=== PATIENT | male | born 1975 | race Caucasian/White ===

== ENCOUNTER 2016-12-14 11:24 | Inpatient (IN) | payer SELFPAY ==
[~2016-12-14] VITALS: Ht 180.3 cm; Wt 83.0 kg
--- NOTE | 2016-12-14 12:54 | PHYS DOC ---
Adult General Chief Complaint Chief Complaint: INSECT BITE HPI HPI Patient is a 41 year old male presents to the emergency department after being seen at urgent care today patient states that he was bit by something on Thursday and as of today he has increased swelling pain and discomfort to the right index finger. Patient is unable to have full range of motion of the finger. Patient has redness warmth tenderness that appears to have a hole in the middle of the redness. Patient is right-hand dominant. Patient's tetanus immunization is up-to-date. Patient denies any fever, chills or any nausea or vomiting. Review of Systems Review of Systems . Redness warmth tenderness and swelling to the right index finger. Constitutional: Denies fever or chills [] Eyes: Denies change in visual acuity, redness, or eye pain [] HENT: Denies nasal congestion or sore throat [] Respiratory: Denies cough or shortness of breath [] Cardiovascular: No additional information not addressed in HPI [] GI: Denies abdominal pain, nausea, vomiting, bloody stools or diarrhea [] : Denies dysuria or hematuria [] Musculoskeletal: Denies back pain or joint pain [] Integument: Denies rash or skin lesions [] Neurologic: Denies headache, focal weakness or sensory changes [] Endocrine: Denies polyuria or polydipsia [] Current Medications Current Medications Allergies Allergies Allergies Coded Allergies Type Severity Reaction Last Updated Verified No Known Drug Allergies 12/14/16 No Physical Exam Physical Exam Constitutional: Well developed, well nourished, no acute distress, non-toxic appearance. [] HENT: Normocephalic, atraumatic, bilateral external ears normal, oropharynx moist, no oral exudates, nose normal. [] Eyes: PERRLA, EOMI, conjunctiva normal, no discharge. [] Neck: Normal range of motion, no tenderness, supple, no stridor. [] Cardiovascular:Heart rate regular rhythm, no murmur [] Lungs & Thorax: Bilateral breath sounds clear to auscultation [] Abdomen: Bowel sounds normal, soft, no tenderness, no masses, no pulsatile masses. [] Skin: Warm, dry, no erythema, no rash. Patient with redness warmth tenderness to the right index finger with swelling noted. No drainage or discharge noted however there does appear to be a open wound noted in the center of the redness. Extremities: No tenderness, no cyanosis, no clubbing, ROM intact, no edema. [] Neurologic: Alert and oriented X 3, normal motor function, normal sensory function, no focal deficits noted. [] Psychologic: Affect normal, judgement normal, mood normal. [] Current Patient Data Vital Signs Vital Signs Date Time Temp Pulse Resp B/P (MAP) Pulse Ox O2 Delivery O2 Flow Rate FiO2 12/14/16 12:50 97.8 70 18 134/88 (103) 98 Room Air 97.8 EKG EKG [] Radiology/Procedures Radiology/Procedures [] Course & Med Decision Making Course & Med Decision Making Pertinent Labs and Imaging studies reviewed. (See chart for details) Spoke with Dr. Rivera in regards to patient being admitted into the hospital for IV antibiotics due to the appearance of the cellulitis. Patient does have labs pending CBC, CMP. Patient has had x-ray completed however the report is not back yet. She agrees with the admission. Patient was placed on vancomycin. Patient is in agreement's with admission as well. [] Dragon Disclaimer Dragon Disclaimer This electronic medical record was generated, in whole or in part, using a voice recognition dictation system. Departure Departure Impression: Primary Impression: Cellulitis of finger of right hand Disposition: ADMITTED INPATIENT Admitting Physician: Suma Rivera Referrals: UNKNOWN PCP NAME (PCP) KELLY QUEEN APRN Dec 14, 2016 12:54
[2016-12-14] MEDS ORDERED: HYDROcodone/APAP 10/325 1 TAB TABLET PO ONE (13:00)
[2016-12-14] MEDS ORDERED: VANCOMYCIN 1GM IVPB FOR OMNI 250 ML IV ONE (13:00)
[2016-12-14] MEDS ORDERED: ONDANSETRON PF 4 MG/2 ML VIAL. IV PRN ×2 (13:15→15:15)
--- NOTE | 2016-12-14 13:17 | RAD ---
Three-view study of the second digit of the right hand Indications: Insect bite of index finger. Open wound of the proximal aspect of the finger. Findings: No acute fracture or dislocation or osteolytic process is seen. Diffuse soft tissue swelling of the second digit is evident. No radiopaque foreign body of the second digit is seen. There is a 3 mm metallic foreign body of the palmar soft tissues of the right thumb. This is seen at the level of the distal phalanx. Another punctate metallic foreign body is seen within the dorsal aspect of the right thumb at the level of the first metatarsal phalangeal joint. IMPRESSION: No acute osseous abnormality. Metallic foreign bodies of the right thumb.
[2016-12-14 13:33] LABS: BASO # 0.1 x10^3/uL (0.0-0.2); BASO % 1 % (0-3); EOS % 1 % (0-3); HEMATOCRIT 42.6 % (39.0-53.0); LYMPH # 2.2 x10^3/uL (1.0-4.8); LYMPH % 16 % (24-48); MEAN CORPUSCULAR HEMOGLOBIN 28 pg (25-35); MEAN CORPUSCULAR HGB CONC 33 g/dL (31-37); MEAN CORPUSCULAR VOLUME 86 fL (79-100); MONO % 5 % (0-9); NEUT % 77 % (31-73); PLATELET COUNT 316 x10^3/uL (140-400); RED BLOOD COUNT 4.96 x10^6/uL (4.30-5.70); WHITE BLOOD COUNT 13.6 x10^3/uL (4.0-11.0)
[2016-12-14 13:39] LABS: CALCIUM 8.7 mg/dL (8.5-10.1); CREATININE 1.3 mg/dL (0.7-1.3); GFR 61.1; POTASSIUM 3.9 mmol/L (3.5-5.1)
[2016-12-14 13:45] LABS: ALBUMIN 3.5 g/dL (3.4-5.0); ALBUMIN/GLOBULIN RATIO 0.7 (1.0-1.7); TOTAL BILIRUBIN 0.4 mg/dL (0.2-1.0); TOTAL PROTEIN 8.2 g/dL (6.4-8.2)
[2016-12-14] MEDS ORDERED: VANCOMYCIN 2 GM in IV NORMAL SALINE 500ML BAG 500 ML IV ONE (14:00)
[2016-12-14] MEDS: VANCOMYCIN PER PHARMACY MC PRN (14:50)
[2016-12-14 15:09] VITALS: BP 119/76
[2016-12-14] MEDS ORDERED: ACETAMINOPHEN 325 MG TABLET. PO PRN (15:15)
--- NOTE | 2016-12-14 15:26 | PDOC1 ---
History and Physical Date of Admission Date of Admission DATE: 12/14/16 TIME: 15:20 Identification/Chief Complaint Chief Complaint Rt forefinger swelling and pain Problems: Source Source: Caregiver, Chart review, Patient History of Present Illness History of Present Illness 41 y.o male with no past medical, was sharpening his knife thursday while working on his garage/car, maybe admitted now that some shrapnel went to his skin forefinger and might have manipulated even more, Today, thursday, no fevers, but Rt forefinger, swollen, red with some clear to slightly milkish dc on open wound of said finger. Admitted after IV vanc, LAbs WBC 13, afebriile,. Xrays shows some foreign metallic objects on subject finger. 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 Hence he is on ASA 81,. They are curious about the results Past Medical History Cardiovascular: No pertinent hx Pulmonary: No pertinent hx GI: No pertinent hx Heme/Onc: No pertinent hx Hepatobiliary: No pertinent hx Psych: No pertinent hx Rheumatologic: No pertinent hx Infectious disease: No pertinent hx ENT: No pertinent hx Renal/: No pertinent hx Endocrine: No pertinent hx Dermatology: No pertinent hx Past Surgical History Past Surgical History: No pertinent history Family History Family History: Other (protein C and S deficiency) Social History Smoke: No ALCOHOL: none Drugs: None Current Problem List Problem List Problems Medical Problems: (1) Cellulitis of finger of right hand Status: Acute Problems: Current Medications Current Medications Current Medications Vancomycin HCl 250 ml @ 250 mls/hr 1X ONCE IV ; Start 12/14/16 at 13:00; Stop 12/14/16 at 13:59; Status Cancel Acetaminophen/ Hydrocodone Bitart (Lortab 10/325) 1 tab 1X ONCE PO Last administered on 12/14/16t 13:38; Start 12/14/16 at 13:00; Stop 12/14/16 at 13 :01; Status DC Ondansetron HCl (Zofran) 4 mg PRN Q8HRS PRN IV NAUSEA/VOMITING; Start at 13:15; Stop 12/14/16 at 15:02; Status DC Vancomycin HCl (Vanco Per Pharmacy) 1 each PRN DAILY PRN MC SEE COMMENTS Last administered on 12/14/16t 14:50; Start 12/14/16 at 13:15 Acetaminophen/ Hydrocodone Bitart (Lortab 5/325) 2 tab PRN Q6HRS PRN PO pain; Start 12/14/16 at 13:15 Vancomycin HCl 2 gm/Sodium Chloride 500 ml @ 250 mls/hr 1X ONCE IV Last administered on 12/14/16t 13:38; Start 12/14/16 at 14:00; Stop 12/14/16 at 15 :59 Vancomycin HCl 1.25 gm/Sodium Chloride 250 ml @ 167 mls/hr Q12H IV ; Start at 02:00 Vancomycin HCl 1 each 1X ONCE MC ; Start 12/16/16 at 01:30; Stop 12/16/16 at 01:31 Ondansetron HCl (Zofran) 4 mg PRN Q6HRS PRN IV NAUSEA/VOMITING; Start at 15:15; Stop 12/15/16 at 15:14 Acetaminophen (Tylenol) 650 mg PRN Q6HRS PRN PO pain; Start 12/14/16 at 15:15 Morphine Sulfate 2 mg PRN Q2HR PRN IV PAIN; Start 12/14/16 at 15:15 Allergies Allergies: Coded Allergies: No Known Drug Allergies (Unverified , 12/14/16) ROS General: No: Chills, Night Sweats, Fatigue, Malaise, Appetite, Other PSYCHOLOGICAL ROS: No: Anxiety, Behavioral Disorder, Concentration difficultie , Decreased libido, Depression, Disorientation, Hallucinations, Hostility, Irritablity, Memory difficulties, Mood Swings, Obsessive thoughts, Physical abuse, Sexual abuse, Sleep disturbances, Suicidal ideation, Other Eyes: No Blurry vision, No Decreased vision, No Double vision, No Dry eyes, No Excessive tearing, No Eye Pain, No Itchy Eyes, No Loss of vision, No Photophobia , No Scotomata, No Uses contacts, No Uses glasses, No Other HEENT: No: Heacaches, Visual Changes, Hearing change, Nasal congestion, Nasal discharge, Oral lesions, Sinus pain, Sore Throat, Epistaxis, Sneezing, Snoring, Tinnitus, Vertigo, Vocal changes, Other ALLERGY AND IMMUNOLOGY: No: Hives, Insect Bite Sensitivity, Itchy/Watery Eyes, Nasal Congestion, Post Nasal Drip, Seasonal Allergies, Other Hematological and Lymphatic: No: Bleeding Problems, Blood Clots, Blood Transfusions, Brusing, Night Sweats, Pallor, Swollen Lymph Nodes, Other ENDOCRINE: No: Breast Changes, Galactorrhea, Hair Pattern Changes, Hot Flashes , Malaise/lethargy, Mood Swings, Palpitations, Polydipsia/polyuria, Skin Changes , Temperature Intolerance, Unexpected Weight Changes, Other Breast: No New/Changing Breast Lumps, No Nipple changes, No Nipple discharge, No Other Respiratory: No: Cough, Hemoptysis, Orthopnea, Pleuritic Pain, Shortness of breath, SOB with excertion, Sputum Changes, Stridor, Tachypnea, Wheezing, Other Cardiovascular: No Chest Pain, No Palpitations, No Orthopnea, No Paroxysmal Noc. Dyspnea, No Edema, No Lt Headedness, No Other Gastrointestinal: No Nausea, No Vomiting, No Abdominal Pain, No Diarrhea, No Constipation, No Melena, No Hematochezia, No Other Genitourinary: No Dysuria, No Frequency, No Incontinence, No Hematuria, No Retention, No Discharge, No Urgency, No Pain, No Flank Pain, No Other, No , No , No , No , No , No , No Musculoskeletal: No Gait Disturbance, No Joint Pain, No Joint Stiffness, No Joint Swelling, No Muscle Pain, No Muscular Weakness, No Pain In:, No Swelling In:, No Other Neurological: No Behavorial Changes, No Bowel/Bladder ControlChng, No Confusion , No Dizziness, No Gait Disturbance, No Headaches, No Impaired Coord/balance, No Memory Loss, No Numbness/Tingling, No Seizures, No Speech Problems, No Tremors, No Visual Changes, No Weakness, No Other Skin: Yes Other (as per HPI) Physical Exam General: Alert, Oriented X3, Cooperative, No acute distress HEENT: Atraumatic, PERRLA, EOMI Lungs: Clear to auscultation, Normal air movement Heart: S1S2, RRR, no thrills, no rubs, no gallops, murmurs Cardiovascular: S1, S2 Abdomen: Normal bowel sounds, Soft, No tenderness, No hepatosplenomegaly, No masses Male Genitals Exam: normal genitalia, normal prostate Rectal Exam: not examined PELVIC: Nml ext genitalia Extremities: Other (T forefingerm, swollen, red, open lesion with some clear to yellowish/milky dc, limited flexion bec of swelling) Neuro: Normal gait, Normal speech, Strength at 5/5 X4 ext, Normal tone, Sensation intact, Cranial nerves 3-12 NL, Reflexes 2+ Psych/Mental Status: Mental status NL, Mood NL Vitals Vitals Vital Signs Date Time Temp Pulse Resp B/P (MAP) Pulse Ox O2 Delivery O2 Flow Rate FiO2 12/14/16 12:50 97.8 70 18 134/88 (103) 98 Room Air 97.8 Labs Labs Laboratory Tests Test 12/14/16 13:25 White Blood Count 13.6 x10^3/uL (4.0-11.0) Red Blood Count 4.96 x10^6/uL (4.30-5.70) Hemoglobin 14.0 g/dL (13.0-17.5) Hematocrit 42.6 % (39.0-53.0) Mean Corpuscular Volume 86 fL (79-100) Mean Corpuscular Hemoglobin 28 pg (25-35) Mean Corpuscular Hemoglobin Concent 33 g/dL (31-37) Red Cell Distribution Width 13.0 % (11.5-14.5) Platelet Count 316 x10^3/uL (140-400) Neutrophils (%) (Auto) 77 % (31-73) Lymphocytes (%) (Auto) 16 % (24-48) Monocytes (%) (Auto) 5 % (0-9) Eosinophils (%) (Auto) 1 % (0-3) Basophils (%) (Auto) 1 % (0-3) Neutrophils # (Auto) 10.5 x10^3uL (1.8-7.7) Lymphocytes # (Auto) 2.2 x10^3/uL (1.0-4.8) Monocytes # (Auto) 0.7 x10^3/uL (0.0-1.1) Eosinophils # (Auto) 0.1 x10^3/uL (0.0-0.7) Basophils # (Auto) 0.1 x10^3/uL (0.0-0.2) Sodium Level 138 mmol/L (136-145) Potassium Level 3.9 mmol/L (3.5-5.1) Chloride Level 101 mmol/L (98-107) Carbon Dioxide Level 31 mmol/L (21-32) Anion Gap 6 (6-14) Blood Urea Nitrogen 6 mg/dL (8-26) Creatinine 1.3 mg/dL (0.7-1.3) Estimated GFR (Cockcroft-Gault) 61.1 BUN/Creatinine Ratio 5 (6-20) Glucose Level 118 mg/dL (70-99) Calcium Level 8.7 mg/dL (8.5-10.1) Total Bilirubin 0.4 mg/dL (0.2-1.0) Aspartate Amino Transf (AST/SGOT) 12 U/L (15-37) Alanine Aminotransferase (ALT/SGPT) 18 U/L (16-63) Alkaline Phosphatase 58 U/L (46-116) Total Protein 8.2 g/dL (6.4-8.2) Albumin 3.5 g/dL (3.4-5.0) Albumin/Globulin Ratio 0.7 (1.0-1.7) Laboratory Tests Test 12/14/16 13:25 White Blood Count 13.6 x10^3/uL (4.0-11.0) Red Blood Count 4.96 x10^6/uL (4.30-5.70) Hemoglobin 14.0 g/dL (13.0-17.5) Hematocrit 42.6 % (39.0-53.0) Mean Corpuscular Volume 86 fL (79-100) Mean Corpuscular Hemoglobin 28 pg (25-35) Mean Corpuscular Hemoglobin Concent 33 g/dL (31-37) Red Cell Distribution Width 13.0 % (11.5-14.5) Platelet Count 316 x10^3/uL (140-400) Neutrophils (%) (Auto) 77 % (31-73) Lymphocytes (%) (Auto) 16 % (24-48) Monocytes (%) (Auto) 5 % (0-9) Eosinophils (%) (Auto) 1 % (0-3) Basophils (%) (Auto) 1 % (0-3) Neutrophils # (Auto) 10.5 x10^3uL (1.8-7.7) Lymphocytes # (Auto) 2.2 x10^3/uL (1.0-4.8) Monocytes # (Auto) 0.7 x10^3/uL (0.0-1.1) Eosinophils # (Auto) 0.1 x10^3/uL (0.0-0.7) Basophils # (Auto) 0.1 x10^3/uL (0.0-0.2) Sodium Level 138 mmol/L (136-145) Potassium Level 3.9 mmol/L (3.5-5.1) Chloride Level 101 mmol/L (98-107) Carbon Dioxide Level 31 mmol/L (21-32) Anion Gap 6 (6-14) Blood Urea Nitrogen 6 mg/dL (8-26) Creatinine 1.3 mg/dL (0.7-1.3) Estimated GFR (Cockcroft-Gault) 61.1 BUN/Creatinine Ratio 5 (6-20) Glucose Level 118 mg/dL (70-99) Calcium Level 8.7 mg/dL (8.5-10.1) Total Bilirubin 0.4 mg/dL (0.2-1.0) Aspartate Amino Transf (AST/SGOT) 12 U/L (15-37) Alanine Aminotransferase (ALT/SGPT) 18 U/L (16-63) Alkaline Phosphatase 58 U/L (46-116) Total Protein 8.2 g/dL (6.4-8.2) Albumin 3.5 g/dL (3.4-5.0) Albumin/Globulin Ratio 0.7 (1.0-1.7) VTE Prophylaxis Ordered VTE Prophylaxis Devices: Yes VTE Pharmacological Prophylaxi: Yes Assessment/Plan Assessment/Plan 1. RT forefinger cellulitis with foreign metallic objects embedded, likely knife shrapnels - IV abx, consult ortho, hold ASA 81 incase OR, NPO post MN, reg diet now NSAIDs, pain control 2. Hx Protein C and S in family - get [employer] results per fam request dw whole family and RN and pt NANCY THAKUR MD Dec 14, 2016 15:26
[2016-12-14] MEDS: PIPERACILLIN/TAZOBACTAM 3.375 GM in IV NORMAL SALINE 50ML 50 ML IV SCH (17:00)
[2016-12-14 19:30] VITALS: BP 129/72
[2016-12-14] MEDS: HYDROcodone/APAP 5/325MG 1 TAB TABLET PO PRN (20:05)
[2016-12-14] MEDS: MORPHINE SULFATE 2 MG/ML DISP.SYRIN. IV PRN ×2 (20:05→22:17)
[2016-12-14] MEDS ORDERED: diphenhydrAMINE 50 MG/ML VIAL IVP PRN (22:15)
[2016-12-14 23:22] VITALS: BP 110/68
--- NOTE | 2016-12-15 01:46 | CONS ---
DATE OF CONSULTATION: 12/14/2016 REFERRING PROVIDER: Dr. Suma Rivera. CONSULTING PROVIDER: Steve Joshua MD REASON FOR CONSULTATION: Right second digit infection. HISTORY OF PRESENT ILLNESS: The patient is a 41-year-old gentleman who is fairly healthy and was sharpening his knife and working on his car and he thinks something along this line led to a small red bump on the dorsum adjacent to P1 of the right second digit. He continued to kind of scrap and pick at it over the past several days and went into Urgent Care yesterday for worsening pain, redness and swelling; however, was too late. Therefore, he came to Urgent Care today and was sent to the Emergency Department. He received a dose of IV antibiotics and tells me that he is feeling better since then. He noticed a red streak going up his dorsal forearm, which has subsequently completely resolved since a dose of IV antibiotics. He denies any fevers, chills, nausea, vomiting or ill feeling. PAST MEDICAL HISTORY: Healthy. PAST SURGICAL HISTORY: None. FAMILY HISTORY: Hypercoagulability. SOCIAL HISTORY: No alcohol or tobacco. REVIEW OF SYSTEMS: Twelve-point review of systems negative except as per HPI. MEDICATIONS: Reviewed, please see MRAD. PHYSICAL EXAMINATION: VITAL SIGNS: Reviewed. He is afebrile. GENERAL: He is alert and oriented. Speech is clear. He is examined in the hospital bed. HEENT: Head is normocephalic and atraumatic. Extraocular muscles are intact. CARDIOVASCULAR: Regular rate and rhythm. Radial pulses 2+. LUNGS: Respirations are unlabored with symmetric chest rise. ABDOMEN: Soft and nondistended. EXTREMITIES: Examination of the right upper extremity reveals erythema and cellulitis from the dorsum of his proximal index finger and over his MCP joint. No tenderness on volar sheath or in palm. No tenderness to dorsum of his hand, wrist or forearm. He does have some serous drainage over the central portion of this erythema adjacent to P1. He has decreased active range of motion secondary to pain. IMAGING: X-rays are reviewed. Hand series was interpreted by myself. Report was also reviewed. He has a metallic foreign body in the pulp of his volar thumb on the right hand. Otherwise, no bony abnormalities. LABORATORY DATA: Reviewed. He has an elevated white count. IMPRESSION: Right hand cellulitis. PLAN: I did discuss with this gentleman that because he responded so well to IV antibiotics, it might be worthwhile to give this some time to respond to IV antibiotics. I recommended having broad-spectrum in addition to the vancomycin he received and asked the nurse to start him on Zosyn as well. He will be n.p.o. at midnight, but can otherwise eat today. We will reassess him in the morning. The location of the foreign body does not at all correspond to his clinical exam and where the infection is and therefore, I do not think that we need to plan on removing that. I discussed this with he and his family and they are in agreeance with this plan. We will see him tomorrow morning. STEVE JOSHUA MD DR: CAT/jann JOB#: [id number] / [id number] LUBNA
[2016-12-15] MEDS: PIPERACILLIN/TAZOBACTAM 3.375 GM in IV NORMAL SALINE 50ML 50 ML IV SCH ×3 (02:10→17:20)
[2016-12-15] MEDS: VANCOMYCIN 1.25 GM in IV NORMAL SALINE 250ML 250 ML IV SCH ×2 (02:11→15:07)
[2016-12-15] MEDS: MORPHINE SULFATE 2 MG/ML DISP.SYRIN. IV PRN (02:15)
[2016-12-15] MEDS: HYDROcodone/APAP 5/325MG 1 TAB TABLET PO PRN ×2 (02:16→17:19)
[2016-12-15 03:00] VITALS: BP 117/69
[2016-12-15 06:21] LABS: BASO % 0 % (0-3); EOS % 2 % (0-3); HEMATOCRIT 39.3 % (39.0-53.0); HEMOGLOBIN 13.2 g/dL (13.0-17.5); LYMPH # 2.6 x10^3/uL (1.0-4.8); LYMPH % 26 % (24-48); MEAN CORPUSCULAR HEMOGLOBIN 29 pg (25-35); MEAN CORPUSCULAR HGB CONC 34 g/dL (31-37); MEAN CORPUSCULAR VOLUME 85 fL (79-100); MONO % 7 % (0-9); NEUT % 65 % (31-73); PLATELET COUNT 293 x10^3/uL (140-400); RED BLOOD COUNT 4.62 x10^6/uL (4.30-5.70); RED CELL DISTRIBUTION WIDTH 13.3 % (11.5-14.5); WHITE BLOOD COUNT 10.2 x10^3/uL (4.0-11.0)
[2016-12-15 06:44] LABS: CALCIUM 8.3 mg/dL (8.5-10.1); GFR 82.8; POTASSIUM 4.1 mmol/L (3.5-5.1)
[2016-12-15 07:00] VITALS: BP 107/66
--- NOTE | 2016-12-15 10:22 | PDOC ---
ORTHO PROGRESS NOTES Subjective Pain and motion better. No new complaints Vitals Vital Signs Date Time Temp Pulse Resp B/P (MAP) Pulse Ox O2 Delivery O2 Flow Rate FiO2 12/15/16 07:00 98.8 62 18 107/66 (80) 96 Room Air 98.8 Labs Laboratory Tests Test 12/14/16 13:25 12/15/16 04:45 White Blood Count 13.6 x10^3/uL (4.0-11.0) 10.2 x10^3/uL (4.0-11.0) Red Blood Count 4.96 x10^6/uL (4.30-5.70) 4.62 x10^6/uL (4.30-5.70) Hemoglobin 14.0 g/dL (13.0-17.5) 13.2 g/dL (13.0-17.5) Hematocrit 42.6 % (39.0-53.0) 39.3 % (39.0-53.0) Mean Corpuscular Volume 86 fL (79-100) 85 fL (79-100) Mean Corpuscular Hemoglobin 28 pg (25-35) 29 pg (25-35) Mean Corpuscular Hemoglobin Concent 33 g/dL (31-37) 34 g/dL (31-37) Red Cell Distribution Width 13.0 % (11.5-14.5) 13.3 % (11.5-14.5) Platelet Count 316 x10^3/uL (140-400) 293 x10^3/uL (140-400) Neutrophils (%) (Auto) 77 % (31-73) 65 % (31-73) Lymphocytes (%) (Auto) 16 % (24-48) 26 % (24-48) Monocytes (%) (Auto) 5 % (0-9) 7 % (0-9) Eosinophils (%) (Auto) 1 % (0-3) 2 % (0-3) Basophils (%) (Auto) 1 % (0-3) 0 % (0-3) Neutrophils # (Auto) 10.5 x10^3uL (1.8-7.7) 6.6 x10^3uL (1.8-7.7) Lymphocytes # (Auto) 2.2 x10^3/uL (1.0-4.8) 2.6 x10^3/uL (1.0-4.8) Monocytes # (Auto) 0.7 x10^3/uL (0.0-1.1) 0.7 x10^3/uL (0.0-1.1) Eosinophils # (Auto) 0.1 x10^3/uL (0.0-0.7) 0.2 x10^3/uL (0.0-0.7) Basophils # (Auto) 0.1 x10^3/uL (0.0-0.2) 0.0 x10^3/uL (0.0-0.2) Sodium Level 138 mmol/L (136-145) 139 mmol/L (136-145) Potassium Level 3.9 mmol/L (3.5-5.1) 4.1 mmol/L (3.5-5.1) Chloride Level 101 mmol/L (98-107) 105 mmol/L (98-107) Carbon Dioxide Level 31 mmol/L (21-32) 28 mmol/L (21-32) Anion Gap 6 (6-14) 6 (6-14) Blood Urea Nitrogen 6 mg/dL (8-26) 7 mg/dL (8-26) Creatinine 1.3 mg/dL (0.7-1.3) 1.0 mg/dL (0.7-1.3) Estimated GFR (Cockcroft-Gault) 61.1 82.8 BUN/Creatinine Ratio 5 (6-20) Glucose Level 118 mg/dL (70-99) 105 mg/dL (70-99) Calcium Level 8.7 mg/dL (8.5-10.1) 8.3 mg/dL (8.5-10.1) Total Bilirubin 0.4 mg/dL (0.2-1.0) Aspartate Amino Transf (AST/SGOT) 12 U/L (15-37) Alanine Aminotransferase (ALT/SGPT) 18 U/L (16-63) Alkaline Phosphatase 58 U/L (46-116) Total Protein 8.2 g/dL (6.4-8.2) Albumin 3.5 g/dL (3.4-5.0) Albumin/Globulin Ratio 0.7 (1.0-1.7) Laboratory Tests Test 12/14/16 13:25 12/15/16 04:45 White Blood Count 13.6 x10^3/uL (4.0-11.0) 10.2 x10^3/uL (4.0-11.0) Red Blood Count 4.96 x10^6/uL (4.30-5.70) 4.62 x10^6/uL (4.30-5.70) Hemoglobin 14.0 g/dL (13.0-17.5) 13.2 g/dL (13.0-17.5) Hematocrit 42.6 % (39.0-53.0) 39.3 % (39.0-53.0) Mean Corpuscular Volume 86 fL (79-100) 85 fL (79-100) Mean Corpuscular Hemoglobin 28 pg (25-35) 29 pg (25-35) Mean Corpuscular Hemoglobin Concent 33 g/dL (31-37) 34 g/dL (31-37) Red Cell Distribution Width 13.0 % (11.5-14.5) 13.3 % (11.5-14.5) Platelet Count 316 x10^3/uL (140-400) 293 x10^3/uL (140-400) Neutrophils (%) (Auto) 77 % (31-73) 65 % (31-73) Lymphocytes (%) (Auto) 16 % (24-48) 26 % (24-48) Monocytes (%) (Auto) 5 % (0-9) 7 % (0-9) Eosinophils (%) (Auto) 1 % (0-3) 2 % (0-3) Basophils (%) (Auto) 1 % (0-3) 0 % (0-3) Neutrophils # (Auto) 10.5 x10^3uL (1.8-7.7) 6.6 x10^3uL (1.8-7.7) Lymphocytes # (Auto) 2.2 x10^3/uL (1.0-4.8) 2.6 x10^3/uL (1.0-4.8) Monocytes # (Auto) 0.7 x10^3/uL (0.0-1.1) 0.7 x10^3/uL (0.0-1.1) Eosinophils # (Auto) 0.1 x10^3/uL (0.0-0.7) 0.2 x10^3/uL (0.0-0.7) Basophils # (Auto) 0.1 x10^3/uL (0.0-0.2) 0.0 x10^3/uL (0.0-0.2) Sodium Level 138 mmol/L (136-145) 139 mmol/L (136-145) Potassium Level 3.9 mmol/L (3.5-5.1) 4.1 mmol/L (3.5-5.1) Chloride Level 101 mmol/L (98-107) 105 mmol/L (98-107) Carbon Dioxide Level 31 mmol/L (21-32) 28 mmol/L (21-32) Anion Gap 6 (6-14) 6 (6-14) Blood Urea Nitrogen 6 mg/dL (8-26) 7 mg/dL (8-26) Creatinine 1.3 mg/dL (0.7-1.3) 1.0 mg/dL (0.7-1.3) Estimated GFR (Cockcroft-Gault) 61.1 82.8 BUN/Creatinine Ratio 5 (6-20) Glucose Level 118 mg/dL (70-99) 105 mg/dL (70-99) Calcium Level 8.7 mg/dL (8.5-10.1) 8.3 mg/dL (8.5-10.1) Total Bilirubin 0.4 mg/dL (0.2-1.0) Aspartate Amino Transf (AST/SGOT) 12 U/L (15-37) Alanine Aminotransferase (ALT/SGPT) 18 U/L (16-63) Alkaline Phosphatase 58 U/L (46-116) Total Protein 8.2 g/dL (6.4-8.2) Albumin 3.5 g/dL (3.4-5.0) Albumin/Globulin Ratio 0.7 (1.0-1.7) Notes A and A RUE: erythema and motion improved no new areas of involvement Assessment and Plan cont IV abx responding well ALIYAH JOSHUA II, MD Dec 15, 2016 10:22
[2016-12-15] MEDS: NAPROXEN 500 MG TABLET PO SCH ×2 (10:25→21:31)
--- NOTE | 2016-12-15 10:28 | PDOC ---
PROGRESS NOTES Chief Complaint Chief Complaint 1. RT forefinger cellulitis with foreign metallic objects embedded, likely knife shrapnels - NO surgical plans, IV abx broad - 2. Hx Protein C and S in family - get [facility] [place] results per [facility] request History of Present Illness History of Present Illness Swelling seems better PAin tolerable Ortho note reviewed, broadened abx NO surgical plans PLAN: CPM LAbs in AM Dw whole family - Get results from [place] where he had his Hx Protein C and S levels taken - per [facility] request Vitals Vitals Vital Signs Date Time Temp Pulse Resp B/P (MAP) Pulse Ox O2 Delivery O2 Flow Rate FiO2 12/15/16 07:00 98.8 62 18 107/66 (80) 96 Room Air 98.8 Physical Exam General: Alert, Oriented X3, Cooperative, No acute distress Heart: Regular rate, Normal S1, Normal S2 Lungs: Clear Abdomen: Normal bowel sounds, Soft, No tenderness, No hepatosplenomegaly, No masses Extremities: Other (T forefingerm, swollen, red, open lesion with some clear to yellowish/milky dc, limited flexion bec of swelling) Labs LABS Laboratory Tests Test 12/14/16 13:25 12/15/16 04:45 White Blood Count 13.6 x10^3/uL (4.0-11.0) 10.2 x10^3/uL (4.0-11.0) Red Blood Count 4.96 x10^6/uL (4.30-5.70) 4.62 x10^6/uL (4.30-5.70) Hemoglobin 14.0 g/dL (13.0-17.5) 13.2 g/dL (13.0-17.5) Hematocrit 42.6 % (39.0-53.0) 39.3 % (39.0-53.0) Mean Corpuscular Volume 86 fL (79-100) 85 fL (79-100) Mean Corpuscular Hemoglobin 28 pg (25-35) 29 pg (25-35) Mean Corpuscular Hemoglobin Concent 33 g/dL (31-37) 34 g/dL (31-37) Red Cell Distribution Width 13.0 % (11.5-14.5) 13.3 % (11.5-14.5) Platelet Count 316 x10^3/uL (140-400) 293 x10^3/uL (140-400) Neutrophils (%) (Auto) 77 % (31-73) 65 % (31-73) Lymphocytes (%) (Auto) 16 % (24-48) 26 % (24-48) Monocytes (%) (Auto) 5 % (0-9) 7 % (0-9) Eosinophils (%) (Auto) 1 % (0-3) 2 % (0-3) Basophils (%) (Auto) 1 % (0-3) 0 % (0-3) Neutrophils # (Auto) 10.5 x10^3uL (1.8-7.7) 6.6 x10^3uL (1.8-7.7) Lymphocytes # (Auto) 2.2 x10^3/uL (1.0-4.8) 2.6 x10^3/uL (1.0-4.8) Monocytes # (Auto) 0.7 x10^3/uL (0.0-1.1) 0.7 x10^3/uL (0.0-1.1) Eosinophils # (Auto) 0.1 x10^3/uL (0.0-0.7) 0.2 x10^3/uL (0.0-0.7) Basophils # (Auto) 0.1 x10^3/uL (0.0-0.2) 0.0 x10^3/uL (0.0-0.2) Sodium Level 138 mmol/L (136-145) 139 mmol/L (136-145) Potassium Level 3.9 mmol/L (3.5-5.1) 4.1 mmol/L (3.5-5.1) Chloride Level 101 mmol/L (98-107) 105 mmol/L (98-107) Carbon Dioxide Level 31 mmol/L (21-32) 28 mmol/L (21-32) Anion Gap 6 (6-14) 6 (6-14) Blood Urea Nitrogen 6 mg/dL (8-26) 7 mg/dL (8-26) Creatinine 1.3 mg/dL (0.7-1.3) 1.0 mg/dL (0.7-1.3) Estimated GFR (Cockcroft-Gault) 61.1 82.8 BUN/Creatinine Ratio 5 (6-20) Glucose Level 118 mg/dL (70-99) 105 mg/dL (70-99) Calcium Level 8.7 mg/dL (8.5-10.1) 8.3 mg/dL (8.5-10.1) Total Bilirubin 0.4 mg/dL (0.2-1.0) Aspartate Amino Transf (AST/SGOT) 12 U/L (15-37) Alanine Aminotransferase (ALT/SGPT) 18 U/L (16-63) Alkaline Phosphatase 58 U/L (46-116) Total Protein 8.2 g/dL (6.4-8.2) Albumin 3.5 g/dL (3.4-5.0) Albumin/Globulin Ratio 0.7 (1.0-1.7) Review of Systems Review of Systems pain, swelling rt forefinger, all else is neg 14 pt reviewed Assessment and Plan Assessmemt and Plan Problems Medical Problems: (1) Cellulitis of finger of right hand Status: Acute Problems: Comment Review of Relevant I have reviewed the following items avel (where applicable) has been applied. Labs Laboratory Tests Test 12/14/16 13:25 12/15/16 04:45 White Blood Count 13.6 x10^3/uL (4.0-11.0) 10.2 x10^3/uL (4.0-11.0) Red Blood Count 4.96 x10^6/uL (4.30-5.70) 4.62 x10^6/uL (4.30-5.70) Hemoglobin 14.0 g/dL (13.0-17.5) 13.2 g/dL (13.0-17.5) Hematocrit 42.6 % (39.0-53.0) 39.3 % (39.0-53.0) Mean Corpuscular Volume 86 fL (79-100) 85 fL (79-100) Mean Corpuscular Hemoglobin 28 pg (25-35) 29 pg (25-35) Mean Corpuscular Hemoglobin Concent 33 g/dL (31-37) 34 g/dL (31-37) Red Cell Distribution Width 13.0 % (11.5-14.5) 13.3 % (11.5-14.5) Platelet Count 316 x10^3/uL (140-400) 293 x10^3/uL (140-400) Neutrophils (%) (Auto) 77 % (31-73) 65 % (31-73) Lymphocytes (%) (Auto) 16 % (24-48) 26 % (24-48) Monocytes (%) (Auto) 5 % (0-9) 7 % (0-9) Eosinophils (%) (Auto) 1 % (0-3) 2 % (0-3) Basophils (%) (Auto) 1 % (0-3) 0 % (0-3) Neutrophils # (Auto) 10.5 x10^3uL (1.8-7.7) 6.6 x10^3uL (1.8-7.7) Lymphocytes # (Auto) 2.2 x10^3/uL (1.0-4.8) 2.6 x10^3/uL (1.0-4.8) Monocytes # (Auto) 0.7 x10^3/uL (0.0-1.1) 0.7 x10^3/uL (0.0-1.1) Eosinophils # (Auto) 0.1 x10^3/uL (0.0-0.7) 0.2 x10^3/uL (0.0-0.7) Basophils # (Auto) 0.1 x10^3/uL (0.0-0.2) 0.0 x10^3/uL (0.0-0.2) Sodium Level 138 mmol/L (136-145) 139 mmol/L (136-145) Potassium Level 3.9 mmol/L (3.5-5.1) 4.1 mmol/L (3.5-5.1) Chloride Level 101 mmol/L (98-107) 105 mmol/L (98-107) Carbon Dioxide Level 31 mmol/L (21-32) 28 mmol/L (21-32) Anion Gap 6 (6-14) 6 (6-14) Blood Urea Nitrogen 6 mg/dL (8-26) 7 mg/dL (8-26) Creatinine 1.3 mg/dL (0.7-1.3) 1.0 mg/dL (0.7-1.3) Estimated GFR (Cockcroft-Gault) 61.1 82.8 BUN/Creatinine Ratio 5 (6-20) Glucose Level 118 mg/dL (70-99) 105 mg/dL (70-99) Calcium Level 8.7 mg/dL (8.5-10.1) 8.3 mg/dL (8.5-10.1) Total Bilirubin 0.4 mg/dL (0.2-1.0) Aspartate Amino Transf (AST/SGOT) 12 U/L (15-37) Alanine Aminotransferase (ALT/SGPT) 18 U/L (16-63) Alkaline Phosphatase 58 U/L (46-116) Total Protein 8.2 g/dL (6.4-8.2) Albumin 3.5 g/dL (3.4-5.0) Albumin/Globulin Ratio 0.7 (1.0-1.7) Laboratory Tests Test 12/14/16 13:25 12/15/16 04:45 White Blood Count 13.6 x10^3/uL (4.0-11.0) 10.2 x10^3/uL (4.0-11.0) Red Blood Count 4.96 x10^6/uL (4.30-5.70) 4.62 x10^6/uL (4.30-5.70) Hemoglobin 14.0 g/dL (13.0-17.5) 13.2 g/dL (13.0-17.5) Hematocrit 42.6 % (39.0-53.0) 39.3 % (39.0-53.0) Mean Corpuscular Volume 86 fL (79-100) 85 fL (79-100) Mean Corpuscular Hemoglobin 28 pg (25-35) 29 pg (25-35) Mean Corpuscular Hemoglobin Concent 33 g/dL (31-37) 34 g/dL (31-37) Red Cell Distribution Width 13.0 % (11.5-14.5) 13.3 % (11.5-14.5) Platelet Count 316 x10^3/uL (140-400) 293 x10^3/uL (140-400) Neutrophils (%) (Auto) 77 % (31-73) 65 % (31-73) Lymphocytes (%) (Auto) 16 % (24-48) 26 % (24-48) Monocytes (%) (Auto) 5 % (0-9) 7 % (0-9) Eosinophils (%) (Auto) 1 % (0-3) 2 % (0-3) Basophils (%) (Auto) 1 % (0-3) 0 % (0-3) Neutrophils # (Auto) 10.5 x10^3uL (1.8-7.7) 6.6 x10^3uL (1.8-7.7) Lymphocytes # (Auto) 2.2 x10^3/uL (1.0-4.8) 2.6 x10^3/uL (1.0-4.8) Monocytes # (Auto) 0.7 x10^3/uL (0.0-1.1) 0.7 x10^3/uL (0.0-1.1) Eosinophils # (Auto) 0.1 x10^3/uL (0.0-0.7) 0.2 x10^3/uL (0.0-0.7) Basophils # (Auto) 0.1 x10^3/uL (0.0-0.2) 0.0 x10^3/uL (0.0-0.2) Sodium Level 138 mmol/L (136-145) 139 mmol/L (136-145) Potassium Level 3.9 mmol/L (3.5-5.1) 4.1 mmol/L (3.5-5.1) Chloride Level 101 mmol/L (98-107) 105 mmol/L (98-107) Carbon Dioxide Level 31 mmol/L (21-32) 28 mmol/L (21-32) Anion Gap 6 (6-14) 6 (6-14) Blood Urea Nitrogen 6 mg/dL (8-26) 7 mg/dL (8-26) Creatinine 1.3 mg/dL (0.7-1.3) 1.0 mg/dL (0.7-1.3) Estimated GFR (Cockcroft-Gault) 61.1 82.8 BUN/Creatinine Ratio 5 (6-20) Glucose Level 118 mg/dL (70-99) 105 mg/dL (70-99) Calcium Level 8.7 mg/dL (8.5-10.1) 8.3 mg/dL (8.5-10.1) Total Bilirubin 0.4 mg/dL (0.2-1.0) Aspartate Amino Transf (AST/SGOT) 12 U/L (15-37) Alanine Aminotransferase (ALT/SGPT) 18 U/L (16-63) Alkaline Phosphatase 58 U/L (46-116) Total Protein 8.2 g/dL (6.4-8.2) Albumin 3.5 g/dL (3.4-5.0) Albumin/Globulin Ratio 0.7 (1.0-1.7) Medications Current Medications Vancomycin HCl 250 ml @ 250 mls/hr 1X ONCE IV ; Start 12/14/16 at 13:00; Stop 12/14/16 at 13:59; Status Cancel Acetaminophen/ Hydrocodone Bitart (Lortab 10/325) 1 tab 1X ONCE PO Last administered on 12/14/16 13:38; Start 12/14/16 at 13:00; Stop 12/14/16 at 13 :01; Status DC Ondansetron HCl (Zofran) 4 mg PRN Q8HRS PRN IV NAUSEA/VOMITING; Start at 13:15; Stop 12/14/16 at 15:02; Status DC Vancomycin HCl (Vanco Per Pharmacy) 1 each PRN DAILY PRN MC SEE COMMENTS Last administered on 12/14/16 14:50; Start 12/14/16 at 13:15 Acetaminophen/ Hydrocodone Bitart (Lortab 5/325) 2 tab PRN Q6HRS PRN PO pain Last administered on 12/15/16 02:16; Start 12/14/16 at 13:15 Vancomycin HCl 2 gm/Sodium Chloride 500 ml @ 250 mls/hr 1X ONCE IV Last administered on 12/14/16 13:38; Start 12/14/16 at 14:00; Stop 12/14/16 at 15 :59; Status DC Vancomycin HCl 1.25 gm/Sodium Chloride 250 ml @ 167 mls/hr Q12H IV Last administered on 12/15/16 02:11; Start 12/15/16 at 02:00 Vancomycin HCl 1 each 1X ONCE MC ; Start 12/16/16 at 01:30; Stop 12/16/16 at 01:31 Ondansetron HCl (Zofran) 4 mg PRN Q6HRS PRN IV NAUSEA/VOMITING Last administered on 12/14/16 20:04; Start 12/14/16 at 15:15; Stop 12/15/16 at 15 :14 Acetaminophen (Tylenol) 650 mg PRN Q6HRS PRN PO pain; Start 12/14/16 at 15:15 Morphine Sulfate 2 mg PRN Q2HR PRN IV PAIN Last administered on 12/15/16 02: 15; Start 12/14/16 at 15:15 Piperacillin Sod/ Tazobactam Sod 3.375 gm/Sodium Chloride 50 ml @ 100 mls/hr Q8H IV Last administered on 12/15/16 10:20; Start 12/14/16 at 17:00 Diphenhydramine HCl (Benadryl) 25 mg PRN Q6HRS PRN IVP ITCHING Last administered on 12/14/16 22:17; Start 12/14/16 at 22:15 Naproxen (Naprosyn) 500 mg BID PO Last administered on 12/15/16 10:25; Start 12/15/16 at 10:00 Vitals/I & O Vital Sign - Last 24 Hours 12/14/16 12/14/16 12/14/16 12/14/16 12:50 13:39 14:09 14:39 Temp 97.8 97.8 Pulse 70 70 62 68 Resp 18 B/P (MAP) 134/88 (103) 133/81 (98) 122/77 (92) 121/79 (93) Pulse Ox 98 99 99 100 O2 Delivery Room Air Room Air Room Air Room Air 12/14/16 12/14/16 12/14/16 12/14/16 15:09 19:30 20:00 20:05 Temp 97.7 98.6 97.7 98.6 Pulse 70 74 Resp 18 18 20 B/P (MAP) 119/76 (90) 129/72 (91) Pulse Ox 98 91 98 O2 Delivery Room Air Room Air Room Air Room Air 12/14/16 12/14/16 12/14/16 12/14/16 20:05 20:16 22:17 23:22 Temp 98.3 98.3 Pulse 69 Resp 20 20 18 B/P (MAP) 110/68 (82) Pulse Ox 98 98 97 O2 Delivery Room Air Room Air Room Air Room Air 10/12/15/16 12/15/16 12/15/16 02:15 02:16 02:45 03:00 Temp 98.5 98.5 Pulse 67 Resp 20 20 20 18 B/P (MAP) 117/69 (85) Pulse Ox 97 97 97 97 O2 Delivery Room Air Room Air Room Air Room Air 12/15/16 12/15/16 03:16 07:00 Temp 98.8 98.8 Pulse 62 Resp 20 18 B/P (MAP) 107/66 (80) Pulse Ox 97 96 O2 Delivery Room Air Room Air NANCY THAKUR MD Dec 15, 2016 10:28
[2016-12-15 11:07] VITALS: BP 113/72
[2016-12-15 15:10] VITALS: BP 105/63
[2016-12-15] MEDS: VANCOMYCIN PER PHARMACY MC PRN (16:37)
[2016-12-15 19:00] VITALS: BP 100/78
[2016-12-15 23:00] VITALS: BP 105/63
[2016-12-16] MEDS: PIPERACILLIN/TAZOBACTAM 3.375 GM in IV NORMAL SALINE 50ML 50 ML IV SCH ×3 (00:35→17:38)
[2016-12-16] MEDS: MORPHINE SULFATE 2 MG/ML DISP.SYRIN. IV PRN ×3 (00:39→08:17)
[2016-12-16 01:33] LABS: BASO # 0.1 x10^3/uL (0.0-0.2); BASO % 1 % (0-3); EOS % 2 % (0-3); HEMATOCRIT 36.9 % (39.0-53.0); HEMOGLOBIN 12.2 g/dL (13.0-17.5); LYMPH # 2.3 x10^3/uL (1.0-4.8); LYMPH % 24 % (24-48); MEAN CORPUSCULAR HEMOGLOBIN 28 pg (25-35); MEAN CORPUSCULAR HGB CONC 33 g/dL (31-37); MEAN CORPUSCULAR VOLUME 86 fL (79-100); MONO % 6 % (0-9); NEUT % 68 % (31-73); PLATELET COUNT 270 x10^3/uL (140-400); RED BLOOD COUNT 4.32 x10^6/uL (4.30-5.70); RED CELL DISTRIBUTION WIDTH 13.3 % (11.5-14.5); WHITE BLOOD COUNT 9.5 x10^3/uL (4.0-11.0)
[2016-12-16 01:41] LABS: CALCIUM 7.8 mg/dL (8.5-10.1); CREATININE 1.1 mg/dL (0.7-1.3); GFR 74.1; POTASSIUM 4.2 mmol/L (3.5-5.1)
[2016-12-16 03:00] VITALS: BP 114/64
[2016-12-16] MEDS: VANCOMYCIN 1 GM in IV NORMAL SALINE 250ML 250 ML IV SCH ×3 (03:01→17:42)
[2016-12-16] MEDS: VANCOMYCIN PER PHARMACY MC PRN ×2 (03:35→14:55)
[2016-12-16 07:00] VITALS: BP 115/64
[2016-12-16] MEDS: NAPROXEN 500 MG TABLET PO SCH ×2 (09:39→21:00)
--- NOTE | 2016-12-16 09:39 | PDOC ---
ORTHO PROGRESS NOTES Subjective Moe tells me that he feels like his pain and redness in his finger are improved. No new complaints Vitals Vital Signs Date Time Temp Pulse Resp B/P (MAP) Pulse Ox O2 Delivery O2 Flow Rate FiO2 12/16/16 08:17 Room Air 12/16/16 07:00 98.3 66 18 115/64 (81) 95 98.3 Labs Laboratory Tests Test 12/14/16 13:25 12/15/16 04:45 12/16/16 01:25 White Blood Count 13.6 x10^3/uL (4.0-11.0) 10.2 x10^3/uL (4.0-11.0) 9.5 x10^3/uL (4.0-11.0) Red Blood Count 4.96 x10^6/uL (4.30-5.70) 4.62 x10^6/uL (4.30-5.70) 4.32 x10^6/uL (4.30-5.70) Hemoglobin 14.0 g/dL (13.0-17.5) 13.2 g/dL (13.0-17.5) 12.2 g/dL (13.0-17.5) Hematocrit 42.6 % (39.0-53.0) 39.3 % (39.0-53.0) 36.9 % (39.0-53.0) Mean Corpuscular Volume 86 fL (79-100) 85 fL (79-100) 86 fL (79-100) Mean Corpuscular Hemoglobin 28 pg (25-35) 29 pg (25-35) 28 pg (25-35) Mean Corpuscular Hemoglobin Concent 33 g/dL (31-37) 34 g/dL (31-37) 33 g/dL (31-37) Red Cell Distribution Width 13.0 % (11.5-14.5) 13.3 % (11.5-14.5) 13.3 % (11.5-14.5) Platelet Count 316 x10^3/uL (140-400) 293 x10^3/uL (140-400) 270 x10^3/uL (140-400) Neutrophils (%) (Auto) 77 % (31-73) 65 % (31-73) 68 % (31-73) Lymphocytes (%) (Auto) 16 % (24-48) 26 % (24-48) 24 % (24-48) Monocytes (%) (Auto) 5 % (0-9) 7 % (0-9) 6 % (0-9) Eosinophils (%) (Auto) 1 % (0-3) 2 % (0-3) 2 % (0-3) Basophils (%) (Auto) 1 % (0-3) 0 % (0-3) 1 % (0-3) Neutrophils # (Auto) 10.5 x10^3uL (1.8-7.7) 6.6 x10^3uL (1.8-7.7) 6.4 x10^3uL (1.8-7.7) Lymphocytes # (Auto) 2.2 x10^3/uL (1.0-4.8) 2.6 x10^3/uL (1.0-4.8) 2.3 x10^3/uL (1.0-4.8) Monocytes # (Auto) 0.7 x10^3/uL (0.0-1.1) 0.7 x10^3/uL (0.0-1.1) 0.6 x10^3/uL (0.0-1.1) Eosinophils # (Auto) 0.1 x10^3/uL (0.0-0.7) 0.2 x10^3/uL (0.0-0.7) 0.2 x10^3/uL (0.0-0.7) Basophils # (Auto) 0.1 x10^3/uL (0.0-0.2) 0.0 x10^3/uL (0.0-0.2) 0.1 x10^3/uL (0.0-0.2) Sodium Level 138 mmol/L (136-145) 139 mmol/L (136-145) 142 mmol/L (136-145) Potassium Level 3.9 mmol/L (3.5-5.1) 4.1 mmol/L (3.5-5.1) 4.2 mmol/L (3.5-5.1) Chloride Level 101 mmol/L (98-107) 105 mmol/L (98-107) 106 mmol/L (98-107) Carbon Dioxide Level 31 mmol/L (21-32) 28 mmol/L (21-32) 30 mmol/L (21-32) Anion Gap 6 (6-14) 6 (6-14) 6 (6-14) Blood Urea Nitrogen 6 mg/dL (8-26) 7 mg/dL (8-26) 10 mg/dL (8-26) Creatinine 1.3 mg/dL (0.7-1.3) 1.0 mg/dL (0.7-1.3) 1.1 mg/dL (0.7-1.3) Estimated GFR (Cockcroft-Gault) 61.1 82.8 74.1 BUN/Creatinine Ratio 5 (6-20) Glucose Level 118 mg/dL (70-99) 105 mg/dL (70-99) 113 mg/dL (70-99) Calcium Level 8.7 mg/dL (8.5-10.1) 8.3 mg/dL (8.5-10.1) 7.8 mg/dL (8.5-10.1) Total Bilirubin 0.4 mg/dL (0.2-1.0) Aspartate Amino Transf (AST/SGOT) 12 U/L (15-37) Alanine Aminotransferase (ALT/SGPT) 18 U/L (16-63) Alkaline Phosphatase 58 U/L (46-116) Total Protein 8.2 g/dL (6.4-8.2) Albumin 3.5 g/dL (3.4-5.0) Albumin/Globulin Ratio 0.7 (1.0-1.7) Erythrocyte Sedimentation Rate 40 (0-15) Vancomycin Level Trough 8.1 mcg/mL (10.0-20.0) Vancomycin Last Dose Date Vancomycin Last Dose Time 1400 Laboratory Tests Test 12/16/16 01:25 White Blood Count 9.5 x10^3/uL (4.0-11.0) Red Blood Count 4.32 x10^6/uL (4.30-5.70) Hemoglobin 12.2 g/dL (13.0-17.5) Hematocrit 36.9 % (39.0-53.0) Mean Corpuscular Volume 86 fL (79-100) Mean Corpuscular Hemoglobin 28 pg (25-35) Mean Corpuscular Hemoglobin Concent 33 g/dL (31-37) Red Cell Distribution Width 13.3 % (11.5-14.5) Platelet Count 270 x10^3/uL (140-400) Neutrophils (%) (Auto) 68 % (31-73) Lymphocytes (%) (Auto) 24 % (24-48) Monocytes (%) (Auto) 6 % (0-9) Eosinophils (%) (Auto) 2 % (0-3) Basophils (%) (Auto) 1 % (0-3) Neutrophils # (Auto) 6.4 x10^3uL (1.8-7.7) Lymphocytes # (Auto) 2.3 x10^3/uL (1.0-4.8) Monocytes # (Auto) 0.6 x10^3/uL (0.0-1.1) Eosinophils # (Auto) 0.2 x10^3/uL (0.0-0.7) Basophils # (Auto) 0.1 x10^3/uL (0.0-0.2) Erythrocyte Sedimentation Rate 40 (0-15) Sodium Level 142 mmol/L (136-145) Potassium Level 4.2 mmol/L (3.5-5.1) Chloride Level 106 mmol/L (98-107) Carbon Dioxide Level 30 mmol/L (21-32) Anion Gap 6 (6-14) Blood Urea Nitrogen 10 mg/dL (8-26) Creatinine 1.1 mg/dL (0.7-1.3) Estimated GFR (Cockcroft-Gault) 74.1 Glucose Level 113 mg/dL (70-99) Calcium Level 7.8 mg/dL (8.5-10.1) Vancomycin Level Trough 8.1 mcg/mL (10.0-20.0) Vancomycin Last Dose Date Vancomycin Last Dose Time 1400 Notes He has improved erythema and overall appearance of his right second digit. Assessment and Plan I think he has responded well to antibiotics. He and I did discuss different options today, I think it would be reasonable to discharge him home on Augmentin and doxycycline. He should follow up with me or my nurse practitioner in 1 week ALIYAH JOSHUA II, MD Dec 16, 2016 09:39
[2016-12-16 11:00] VITALS: BP 116/67
--- NOTE | 2016-12-16 11:28 | PDOC ---
PROGRESS NOTES Chief Complaint Chief Complaint 1. RT forefinger cellulitis with foreign metallic objects embedded, likely knife shrapnels - NO surgical plans, IV abx broad - 2. Hx Protein C and S in family - get [facility] results per fam request History of Present Illness History of Present Illness Little improvement in swelling and redness in finger. On NSAID RTC He has high pain tolerance so not complaining of much pain' NO fevers, no white ct NO surgical plans from ortho ON zosyn on day 1 and ortho added vanc on day 2 admit As an aside, We did give him the protein C/S result and tSH tests he had done in [place] per his request Plan: COnsult ID Dw whole family and RN Vitals Vitals Vital Signs Date Time Temp Pulse Resp B/P (MAP) Pulse Ox O2 Delivery O2 Flow Rate FiO2 12/16/16 09:00 Room Air 12/16/16 07:00 98.3 66 18 115/64 (81) 95 98.3 Physical Exam General: Alert, Oriented X3, Cooperative, No acute distress Heart: Regular rate, Normal S1, Normal S2 Lungs: Clear Abdomen: Normal bowel sounds, Soft, No tenderness, No hepatosplenomegaly, No masses Extremities: Other (T forefingerm, swollen, red, open lesion with some clear to yellowish/milky dc, limited flexion bec of swelling) Labs LABS Laboratory Tests Test 12/16/16 01:25 White Blood Count 9.5 x10^3/uL (4.0-11.0) Red Blood Count 4.32 x10^6/uL (4.30-5.70) Hemoglobin 12.2 g/dL (13.0-17.5) Hematocrit 36.9 % (39.0-53.0) Mean Corpuscular Volume 86 fL (79-100) Mean Corpuscular Hemoglobin 28 pg (25-35) Mean Corpuscular Hemoglobin Concent 33 g/dL (31-37) Red Cell Distribution Width 13.3 % (11.5-14.5) Platelet Count 270 x10^3/uL (140-400) Neutrophils (%) (Auto) 68 % (31-73) Lymphocytes (%) (Auto) 24 % (24-48) Monocytes (%) (Auto) 6 % (0-9) Eosinophils (%) (Auto) 2 % (0-3) Basophils (%) (Auto) 1 % (0-3) Neutrophils # (Auto) 6.4 x10^3uL (1.8-7.7) Lymphocytes # (Auto) 2.3 x10^3/uL (1.0-4.8) Monocytes # (Auto) 0.6 x10^3/uL (0.0-1.1) Eosinophils # (Auto) 0.2 x10^3/uL (0.0-0.7) Basophils # (Auto) 0.1 x10^3/uL (0.0-0.2) Erythrocyte Sedimentation Rate 40 (0-15) Sodium Level 142 mmol/L (136-145) Potassium Level 4.2 mmol/L (3.5-5.1) Chloride Level 106 mmol/L (98-107) Carbon Dioxide Level 30 mmol/L (21-32) Anion Gap 6 (6-14) Blood Urea Nitrogen 10 mg/dL (8-26) Creatinine 1.1 mg/dL (0.7-1.3) Estimated GFR (Cockcroft-Gault) 74.1 Glucose Level 113 mg/dL (70-99) Calcium Level 7.8 mg/dL (8.5-10.1) Vancomycin Level Trough 8.1 mcg/mL (10.0-20.0) Vancomycin Last Dose Date Vancomycin Last Dose Time 1400 Review of Systems Review of Systems pain finger, all else is neg 14 pt reviewed Assessment and Plan Assessmemt and Plan Problems Medical Problems: (1) Cellulitis of finger of right hand Status: Acute Problems: Comment Review of Relevant I have reviewed the following items avel (where applicable) has been applied. Labs Laboratory Tests Test 12/14/16 13:25 12/15/16 04:45 12/16/16 01:25 White Blood Count 13.6 x10^3/uL (4.0-11.0) 10.2 x10^3/uL (4.0-11.0) 9.5 x10^3/uL (4.0-11.0) Red Blood Count 4.96 x10^6/uL (4.30-5.70) 4.62 x10^6/uL (4.30-5.70) 4.32 x10^6/uL (4.30-5.70) Hemoglobin 14.0 g/dL (13.0-17.5) 13.2 g/dL (13.0-17.5) 12.2 g/dL (13.0-17.5) Hematocrit 42.6 % (39.0-53.0) 39.3 % (39.0-53.0) 36.9 % (39.0-53.0) Mean Corpuscular Volume 86 fL (79-100) 85 fL (79-100) 86 fL (79-100) Mean Corpuscular Hemoglobin 28 pg (25-35) 29 pg (25-35) 28 pg (25-35) Mean Corpuscular Hemoglobin Concent 33 g/dL (31-37) 34 g/dL (31-37) 33 g/dL (31-37) Red Cell Distribution Width 13.0 % (11.5-14.5) 13.3 % (11.5-14.5) 13.3 % (11.5-14.5) Platelet Count 316 x10^3/uL (140-400) 293 x10^3/uL (140-400) 270 x10^3/uL (140-400) Neutrophils (%) (Auto) 77 % (31-73) 65 % (31-73) 68 % (31-73) Lymphocytes (%) (Auto) 16 % (24-48) 26 % (24-48) 24 % (24-48) Monocytes (%) (Auto) 5 % (0-9) 7 % (0-9) 6 % (0-9) Eosinophils (%) (Auto) 1 % (0-3) 2 % (0-3) 2 % (0-3) Basophils (%) (Auto) 1 % (0-3) 0 % (0-3) 1 % (0-3) Neutrophils # (Auto) 10.5 x10^3uL (1.8-7.7) 6.6 x10^3uL (1.8-7.7) 6.4 x10^3uL (1.8-7.7) Lymphocytes # (Auto) 2.2 x10^3/uL (1.0-4.8) 2.6 x10^3/uL (1.0-4.8) 2.3 x10^3/uL (1.0-4.8) Monocytes # (Auto) 0.7 x10^3/uL (0.0-1.1) 0.7 x10^3/uL (0.0-1.1) 0.6 x10^3/uL (0.0-1.1) Eosinophils # (Auto) 0.1 x10^3/uL (0.0-0.7) 0.2 x10^3/uL (0.0-0.7) 0.2 x10^3/uL (0.0-0.7) Basophils # (Auto) 0.1 x10^3/uL (0.0-0.2) 0.0 x10^3/uL (0.0-0.2) 0.1 x10^3/uL (0.0-0.2) Sodium Level 138 mmol/L (136-145) 139 mmol/L (136-145) 142 mmol/L (136-145) Potassium Level 3.9 mmol/L (3.5-5.1) 4.1 mmol/L (3.5-5.1) 4.2 mmol/L (3.5-5.1) Chloride Level 101 mmol/L (98-107) 105 mmol/L (98-107) 106 mmol/L (98-107) Carbon Dioxide Level 31 mmol/L (21-32) 28 mmol/L (21-32) 30 mmol/L (21-32) Anion Gap 6 (6-14) 6 (6-14) 6 (6-14) Blood Urea Nitrogen 6 mg/dL (8-26) 7 mg/dL (8-26) 10 mg/dL (8-26) Creatinine 1.3 mg/dL (0.7-1.3) 1.0 mg/dL (0.7-1.3) 1.1 mg/dL (0.7-1.3) Estimated GFR (Cockcroft-Gault) 61.1 82.8 74.1 BUN/Creatinine Ratio 5 (6-20) Glucose Level 118 mg/dL (70-99) 105 mg/dL (70-99) 113 mg/dL (70-99) Calcium Level 8.7 mg/dL (8.5-10.1) 8.3 mg/dL (8.5-10.1) 7.8 mg/dL (8.5-10.1) Total Bilirubin 0.4 mg/dL (0.2-1.0) Aspartate Amino Transf (AST/SGOT) 12 U/L (15-37) Alanine Aminotransferase (ALT/SGPT) 18 U/L (16-63) Alkaline Phosphatase 58 U/L (46-116) Total Protein 8.2 g/dL (6.4-8.2) Albumin 3.5 g/dL (3.4-5.0) Albumin/Globulin Ratio 0.7 (1.0-1.7) Erythrocyte Sedimentation Rate 40 (0-15) Vancomycin Level Trough 8.1 mcg/mL (10.0-20.0) Vancomycin Last Dose Date Vancomycin Last Dose Time 1400 Laboratory Tests Test 12/16/16 01:25 White Blood Count 9.5 x10^3/uL (4.0-11.0) Red Blood Count 4.32 x10^6/uL (4.30-5.70) Hemoglobin 12.2 g/dL (13.0-17.5) Hematocrit 36.9 % (39.0-53.0) Mean Corpuscular Volume 86 fL (79-100) Mean Corpuscular Hemoglobin 28 pg (25-35) Mean Corpuscular Hemoglobin Concent 33 g/dL (31-37) Red Cell Distribution Width 13.3 % (11.5-14.5) Platelet Count 270 x10^3/uL (140-400) Neutrophils (%) (Auto) 68 % (31-73) Lymphocytes (%) (Auto) 24 % (24-48) Monocytes (%) (Auto) 6 % (0-9) Eosinophils (%) (Auto) 2 % (0-3) Basophils (%) (Auto) 1 % (0-3) Neutrophils # (Auto) 6.4 x10^3uL (1.8-7.7) Lymphocytes # (Auto) 2.3 x10^3/uL (1.0-4.8) Monocytes # (Auto) 0.6 x10^3/uL (0.0-1.1) Eosinophils # (Auto) 0.2 x10^3/uL (0.0-0.7) Basophils # (Auto) 0.1 x10^3/uL (0.0-0.2) Erythrocyte Sedimentation Rate 40 (0-15) Sodium Level 142 mmol/L (136-145) Potassium Level 4.2 mmol/L (3.5-5.1) Chloride Level 106 mmol/L (98-107) Carbon Dioxide Level 30 mmol/L (21-32) Anion Gap 6 (6-14) Blood Urea Nitrogen 10 mg/dL (8-26) Creatinine 1.1 mg/dL (0.7-1.3) Estimated GFR (Cockcroft-Gault) 74.1 Glucose Level 113 mg/dL (70-99) Calcium Level 7.8 mg/dL (8.5-10.1) Vancomycin Level Trough 8.1 mcg/mL (10.0-20.0) Vancomycin Last Dose Date Vancomycin Last Dose Time 1400 Medications Current Medications Vancomycin HCl 250 ml @ 250 mls/hr 1X ONCE IV ; Start 12/14/16 at 13:00; Stop 12/14/16 at 13:59; Status Cancel Acetaminophen/ Hydrocodone Bitart (Lortab 10/325) 1 tab 1X ONCE PO Last administered on 12/14/16 13:38; Start 12/14/16 at 13:00; Stop 12/14/16 at 13 :01; Status DC Ondansetron HCl (Zofran) 4 mg PRN Q8HRS PRN IV NAUSEA/VOMITING; Start at 13:15; Stop 12/14/16 at 15:02; Status DC Vancomycin HCl (Vanco Per Pharmacy) 1 each PRN DAILY PRN MC SEE COMMENTS Last administered on 12/16/16 03:35; Start 12/14/16 at 13:15 Acetaminophen/ Hydrocodone Bitart (Lortab 5/325) 2 tab PRN Q6HRS PRN PO MODERATE - SEVERE PAIN Last administered on 12/15/16 17:19; Start 12/14/16 at 13:15 Vancomycin HCl 2 gm/Sodium Chloride 500 ml @ 250 mls/hr 1X ONCE IV Last administered on 12/14/16 13:38; Start 12/14/16 at 14:00; Stop 12/14/16 at 15 :59; Status DC Vancomycin HCl 1.25 gm/Sodium Chloride 250 ml @ 167 mls/hr Q12H IV Last administered on 12/15/16 15:07; Start 12/15/16 at 02:00; Stop 12/16/16 at 02 :22; Status DC Vancomycin HCl 1 each 1X ONCE MC Last administered on 12/16/16 01:30; Start 12/16/16 at 01:30; Stop 12/16/16 at 01:31; Status DC Ondansetron HCl (Zofran) 4 mg PRN Q6HRS PRN IV NAUSEA/VOMITING Last administered on 12/14/16 20:04; Start 12/14/16 at 15:15; Stop 12/15/16 at 15 :14; Status DC Acetaminophen (Tylenol) 650 mg PRN Q6HRS PRN PO MILD PAIN; Start 12/14/16 at 15:15 Morphine Sulfate 2 mg PRN Q2HR PRN IV PAIN Last administered on 12/16/16 08: 17; Start 12/14/16 at 15:15 Piperacillin Sod/ Tazobactam Sod 3.375 gm/Sodium Chloride 50 ml @ 100 mls/hr Q8H IV Last administered on 12/16/16 08:16; Start 12/14/16 at 17:00 Diphenhydramine HCl (Benadryl) 25 mg PRN Q6HRS PRN IVP ITCHING Last administered on 12/14/16 22:17; Start 12/14/16 at 22:15 Naproxen (Naprosyn) 500 mg BID PO Last administered on 12/16/16 09:39; Start 12/15/16 at 10:00 Vancomycin HCl 1 gm/Sodium Chloride 250 ml @ 250 mls/hr Q8H IV Last administered on 12/16/16 03:01; Start 12/16/16 at 03:00 Vancomycin HCl 1 each 1X ONCE MC ; Start 12/17/16 at 10:30; Stop 12/17/16 at 10:31 Influenza Virus Vaccine Quadrival (Fluarix Quad [id number] Syringe) 0.5 ml ONCE ONCE VAX IM ; Start 12/16/16 at 11:30; Stop 12/16/16 at 11:31; Status UNV Vitals/I & O Vital Sign - Last 24 Hours 12/15/16 12/15/16 12/15/16 12/15/16 15:10 17:19 18:20 19:00 Temp 98.5 98.7 98.5 98.7 Pulse 69 89 Resp 18 20 B/P (MAP) 105/63 (77) 100/78 (85) Pulse Ox 96 96 96 O2 Delivery Room Air Room Air Room Air Room Air 12/15/16 12/15/16 12/16/16 12/16/16 20:15 23:00 00:39 03:00 Temp 98.5 98.6 98.5 98.6 Pulse 73 66 Resp 20 20 20 B/P (MAP) 105/63 (77) 114/64 (81) Pulse Ox 97 97 97 O2 Delivery Room Air Room Air Room Air Room Air 12/16/16 12/16/16 12/16/16 12/16/16 03:04 03:35 07:00 08:17 Temp 98.3 98.3 Pulse 66 Resp 20 20 18 B/P (MAP) 115/64 (81) Pulse Ox 97 97 95 O2 Delivery Room Air Room Air Room Air 12/16/16 09:00 O2 Delivery Room Air NANCY THAKUR MD Dec 16, 2016 11:28
[2016-12-16] MEDS ORDERED: FLU VACC QS2017-18 (36MOS+)/PF 0.5 ML SYRINGE. VAX IM ONE (12:00)
[2016-12-16] MEDS: HYDROcodone/APAP 5/325MG 1 TAB TABLET PO PRN ×2 (12:17→20:59)
[2016-12-16 15:00] VITALS: BP 111/47
[2016-12-16] MEDS ORDERED: POLYETHYLENE GLYCOL 3350 17 GM PACKET. PO PRN (16:15)
[2016-12-16] MEDS: DOCUSATE SODIUM 100 MG CAPSULE. PO SCH (16:30)
[2016-12-16 19:00] VITALS: BP 125/72
[2016-12-16 23:00] VITALS: BP 109/68
[2016-12-17] MEDS: PIPERACILLIN/TAZOBACTAM 3.375 GM in IV NORMAL SALINE 50ML 50 ML IV SCH ×3 (00:40→18:24)
[2016-12-17 03:00] VITALS: BP 108/65
[2016-12-17] MEDS: VANCOMYCIN 1 GM in IV NORMAL SALINE 250ML 250 ML IV SCH ×3 (03:19→19:42)
[2016-12-17 05:53] LABS: BASO # 0.1 x10^3/uL (0.0-0.2); BASO % 1 % (0-3); EOS % 2 % (0-3); HEMATOCRIT 36.3 % (39.0-53.0); HEMOGLOBIN 12.2 g/dL (13.0-17.5); LYMPH # 2.2 x10^3/uL (1.0-4.8); LYMPH % 23 % (24-48); MEAN CORPUSCULAR HEMOGLOBIN 29 pg (25-35); MEAN CORPUSCULAR HGB CONC 34 g/dL (31-37); MEAN CORPUSCULAR VOLUME 85 fL (79-100); MONO % 7 % (0-9); NEUT % 68 % (31-73); PLATELET COUNT 313 x10^3/uL (140-400); RED BLOOD COUNT 4.27 x10^6/uL (4.30-5.70); WHITE BLOOD COUNT 9.8 x10^3/uL (4.0-11.0)
[2016-12-17 07:10] VITALS: BP 116/73
[2016-12-17 10:32] VITALS: BP 111/65
--- NOTE | 2016-12-17 11:21 | PDOC ---
PROGRESS NOTES Chief Complaint Chief Complaint 1. RT forefinger cellulitis with foreign metallic objects embedded, likely knife shrapnels - NO surgical plans, IV abx broad 2. SIRS POA infectious no organ dysfcn History of Present Illness History of Present Illness Finger looks better! after 2 days broad spectrum IV abx NO fevers, no white ct ESR 40 NO surgical plans ID unable to see (SP) but I did discuss with Dr. Balbuena - CPM PLAN: CPM MAke NSAID RTC Likely po abx on thursday on dc Vitals Vitals Vital Signs Date Time Temp Pulse Resp B/P (MAP) Pulse Ox O2 Delivery O2 Flow Rate FiO2 12/17/16 10:32 97.7 64 20 111/65 (80) 96 Room Air 97.7 Physical Exam General: Alert, Oriented X3, Cooperative, No acute distress Heart: Regular rate, Normal S1, Normal S2 Lungs: Clear Abdomen: Normal bowel sounds, Soft, No tenderness, No hepatosplenomegaly, No masses Extremities: Other (T forefingerm, swollen, red, open lesion with some clear to yellowish/milky dc, limited flexion bec of swelling) Labs LABS Laboratory Tests Test 12/17/16 04:15 White Blood Count 9.8 x10^3/uL (4.0-11.0) Red Blood Count 4.27 x10^6/uL (4.30-5.70) Hemoglobin 12.2 g/dL (13.0-17.5) Hematocrit 36.3 % (39.0-53.0) Mean Corpuscular Volume 85 fL (79-100) Mean Corpuscular Hemoglobin 29 pg (25-35) Mean Corpuscular Hemoglobin Concent 34 g/dL (31-37) Red Cell Distribution Width 13.0 % (11.5-14.5) Platelet Count 313 x10^3/uL (140-400) Neutrophils (%) (Auto) 68 % (31-73) Lymphocytes (%) (Auto) 23 % (24-48) Monocytes (%) (Auto) 7 % (0-9) Eosinophils (%) (Auto) 2 % (0-3) Basophils (%) (Auto) 1 % (0-3) Neutrophils # (Auto) 6.7 x10^3uL (1.8-7.7) Lymphocytes # (Auto) 2.2 x10^3/uL (1.0-4.8) Monocytes # (Auto) 0.7 x10^3/uL (0.0-1.1) Eosinophils # (Auto) 0.2 x10^3/uL (0.0-0.7) Basophils # (Auto) 0.1 x10^3/uL (0.0-0.2) Review of Systems Review of Systems RT forefinger pain, all else is neg, no cp, soa, or abd pain Assessment and Plan Assessmemt and Plan Problems Medical Problems: (1) Cellulitis of finger of right hand Status: Acute Problems: Comment Review of Relevant I have reviewed the following items avel (where applicable) has been applied. Labs Laboratory Tests Test 12/16/16 01:25 12/17/16 04:15 White Blood Count 9.5 x10^3/uL (4.0-11.0) 9.8 x10^3/uL (4.0-11.0) Red Blood Count 4.32 x10^6/uL (4.30-5.70) 4.27 x10^6/uL (4.30-5.70) Hemoglobin 12.2 g/dL (13.0-17.5) 12.2 g/dL (13.0-17.5) Hematocrit 36.9 % (39.0-53.0) 36.3 % (39.0-53.0) Mean Corpuscular Volume 86 fL (79-100) 85 fL (79-100) Mean Corpuscular Hemoglobin 28 pg (25-35) 29 pg (25-35) Mean Corpuscular Hemoglobin Concent 33 g/dL (31-37) 34 g/dL (31-37) Red Cell Distribution Width 13.3 % (11.5-14.5) 13.0 % (11.5-14.5) Platelet Count 270 x10^3/uL (140-400) 313 x10^3/uL (140-400) Neutrophils (%) (Auto) 68 % (31-73) 68 % (31-73) Lymphocytes (%) (Auto) 24 % (24-48) 23 % (24-48) Monocytes (%) (Auto) 6 % (0-9) 7 % (0-9) Eosinophils (%) (Auto) 2 % (0-3) 2 % (0-3) Basophils (%) (Auto) 1 % (0-3) 1 % (0-3) Neutrophils # (Auto) 6.4 x10^3uL (1.8-7.7) 6.7 x10^3uL (1.8-7.7) Lymphocytes # (Auto) 2.3 x10^3/uL (1.0-4.8) 2.2 x10^3/uL (1.0-4.8) Monocytes # (Auto) 0.6 x10^3/uL (0.0-1.1) 0.7 x10^3/uL (0.0-1.1) Eosinophils # (Auto) 0.2 x10^3/uL (0.0-0.7) 0.2 x10^3/uL (0.0-0.7) Basophils # (Auto) 0.1 x10^3/uL (0.0-0.2) 0.1 x10^3/uL (0.0-0.2) Erythrocyte Sedimentation Rate 40 (0-15) Sodium Level 142 mmol/L (136-145) Potassium Level 4.2 mmol/L (3.5-5.1) Chloride Level 106 mmol/L (98-107) Carbon Dioxide Level 30 mmol/L (21-32) Anion Gap 6 (6-14) Blood Urea Nitrogen 10 mg/dL (8-26) Creatinine 1.1 mg/dL (0.7-1.3) Estimated GFR (Cockcroft-Gault) 74.1 Glucose Level 113 mg/dL (70-99) Calcium Level 7.8 mg/dL (8.5-10.1) Vancomycin Level Trough 8.1 mcg/mL (10.0-20.0) Vancomycin Last Dose Date Vancomycin Last Dose Time 1400 Laboratory Tests Test 12/17/16 04:15 White Blood Count 9.8 x10^3/uL (4.0-11.0) Red Blood Count 4.27 x10^6/uL (4.30-5.70) Hemoglobin 12.2 g/dL (13.0-17.5) Hematocrit 36.3 % (39.0-53.0) Mean Corpuscular Volume 85 fL (79-100) Mean Corpuscular Hemoglobin 29 pg (25-35) Mean Corpuscular Hemoglobin Concent 34 g/dL (31-37) Red Cell Distribution Width 13.0 % (11.5-14.5) Platelet Count 313 x10^3/uL (140-400) Neutrophils (%) (Auto) 68 % (31-73) Lymphocytes (%) (Auto) 23 % (24-48) Monocytes (%) (Auto) 7 % (0-9) Eosinophils (%) (Auto) 2 % (0-3) Basophils (%) (Auto) 1 % (0-3) Neutrophils # (Auto) 6.7 x10^3uL (1.8-7.7) Lymphocytes # (Auto) 2.2 x10^3/uL (1.0-4.8) Monocytes # (Auto) 0.7 x10^3/uL (0.0-1.1) Eosinophils # (Auto) 0.2 x10^3/uL (0.0-0.7) Basophils # (Auto) 0.1 x10^3/uL (0.0-0.2) Microbiology 12/16/16 Gram Stain - Final, Complete Medications Current Medications Vancomycin HCl 250 ml @ 250 mls/hr 1X ONCE IV ; Start 12/14/16 at 13:00; Stop 12/14/16 at 13:59; Status Cancel Acetaminophen/ Hydrocodone Bitart (Lortab 10/325) 1 tab 1X ONCE PO Last administered on 12/14/16 13:38; Start 12/14/16 at 13:00; Stop 12/14/16 at 13 :01; Status DC Ondansetron HCl (Zofran) 4 mg PRN Q8HRS PRN IV NAUSEA/VOMITING; Start at 13:15; Stop 12/14/16 at 15:02; Status DC Vancomycin HCl (Vanco Per Pharmacy) 1 each PRN DAILY PRN MC SEE COMMENTS Last administered on 12/16/16 14:55; Start 12/14/16 at 13:15 Acetaminophen/ Hydrocodone Bitart (Lortab 5/325) 2 tab PRN Q6HRS PRN PO MODERATE - SEVERE PAIN Last administered on 12/16/16 20:59; Start 12/14/16 at 13:15 Vancomycin HCl 2 gm/Sodium Chloride 500 ml @ 250 mls/hr 1X ONCE IV Last administered on 12/14/16 13:38; Start 12/14/16 at 14:00; Stop 12/14/16 at 15 :59; Status DC Vancomycin HCl 1.25 gm/Sodium Chloride 250 ml @ 167 mls/hr Q12H IV Last administered on 12/15/16 15:07; Start 12/15/16 at 02:00; Stop 12/16/16 at 02 :22; Status DC Vancomycin HCl 1 each 1X ONCE MC Last administered on 12/16/16 01:30; Start 12/16/16 at 01:30; Stop 12/16/16 at 01:31; Status DC Ondansetron HCl (Zofran) 4 mg PRN Q6HRS PRN IV NAUSEA/VOMITING Last administered on 12/14/16 20:04; Start 12/14/16 at 15:15; Stop 12/15/16 at 15 :14; Status DC Acetaminophen (Tylenol) 650 mg PRN Q6HRS PRN PO MILD PAIN; Start 12/14/16 at 15:15 Morphine Sulfate 2 mg PRN Q2HR PRN IV PAIN Last administered on 12/16/16 08: 17; Start 12/14/16 at 15:15 Piperacillin Sod/ Tazobactam Sod 3.375 gm/Sodium Chloride 50 ml @ 100 mls/hr Q8H IV Last administered on 12/17/16 00:40; Start 12/14/16 at 17:00 Diphenhydramine HCl (Benadryl) 25 mg PRN Q6HRS PRN IVP ITCHING Last administered on 12/14/16 22:17; Start 12/14/16 at 22:15 Naproxen (Naprosyn) 500 mg BID PO Last administered on 12/16/16 21:00; Start 12/15/16 at 10:00 Vancomycin HCl 1 gm/Sodium Chloride 250 ml @ 250 mls/hr Q8H IV Last administered on 12/17/16 03:19; Start 12/16/16 at 03:00 Vancomycin HCl 1 each 1X ONCE MC ; Start 12/17/16 at 10:30; Stop 12/17/16 at 10:31; Status DC Influenza Virus Vaccine Quadrival (Fluarix Quad [id number] Syringe) 0.5 ml ONCE ONCE VAX IM Last administered on 12/16/16t 12:21; Start 12/16/16 at 12:00; Stop 12/16/16 at 12:01; Status DC Docusate Sodium (Colace) 100 mg DAILY PO ; Start 12/16/16 at 16:30 Polyethylene Glycol (miraLAX PACKET) 17 gm PRN DAILY PRN PO CONSTIPATION; Start 12/16/16 at 16:15 Vitals/I & O Vital Sign - Last 24 Hours 12/16/16 12/16/16 12/16/16 12/16/16 12:17 15:00 19:00 20:30 Temp 98.4 98.5 98.4 98.5 Pulse 74 65 Resp 18 18 B/P (MAP) 111/47 (68) 125/72 (89) Pulse Ox 97 96 O2 Delivery Room Air Room Air Room Air Room Air 12/16/16 12/16/16 12/16/16 12/17/16 20:59 22:00 23:00 03:00 Temp 98.4 98.2 98.4 98.2 Pulse 66 73 Resp 20 20 20 18 B/P (MAP) 109/68 (82) 108/65 (79) Pulse Ox 96 96 97 97 O2 Delivery Room Air Room Air Room Air Room Air 12/17/16 12/17/16 07:10 10:32 Temp 98.0 97.7 98.0 97.7 Pulse 61 64 Resp 18 20 B/P (MAP) 116/73 (87) 111/65 (80) Pulse Ox 98 96 O2 Delivery Room Air Room Air Intake and Output 12/17/16 12/17/16 12/18/16 15:00 23:00 07:00 Intake Total 240 ml Balance 240 ml NANCY THAKUR MD Dec 17, 2016 11:21
[2016-12-17] MEDS: DOCUSATE SODIUM 100 MG CAPSULE. PO SCH (12:43)
[2016-12-17] MEDS: NAPROXEN 500 MG TABLET PO SCH ×2 (12:43→21:00)
--- NOTE | 2016-12-17 13:10 | PDOC ---
ORTHO PROGRESS NOTES Subjective Pain unchanged. No new complaints Vitals Vital Signs Date Time Temp Pulse Resp B/P (MAP) Pulse Ox O2 Delivery O2 Flow Rate FiO2 12/17/16 10:32 97.7 64 20 111/65 (80) 96 Room Air 97.7 Labs Laboratory Tests Test 12/16/16 01:25 12/17/16 04:15 12/17/16 10:32 White Blood Count 9.5 x10^3/uL (4.0-11.0) 9.8 x10^3/uL (4.0-11.0) Red Blood Count 4.32 x10^6/uL (4.30-5.70) 4.27 x10^6/uL (4.30-5.70) Hemoglobin 12.2 g/dL (13.0-17.5) 12.2 g/dL (13.0-17.5) Hematocrit 36.9 % (39.0-53.0) 36.3 % (39.0-53.0) Mean Corpuscular Volume 86 fL (79-100) 85 fL (79-100) Mean Corpuscular Hemoglobin 28 pg (25-35) 29 pg (25-35) Mean Corpuscular Hemoglobin Concent 33 g/dL (31-37) 34 g/dL (31-37) Red Cell Distribution Width 13.3 % (11.5-14.5) 13.0 % (11.5-14.5) Platelet Count 270 x10^3/uL (140-400) 313 x10^3/uL (140-400) Neutrophils (%) (Auto) 68 % (31-73) 68 % (31-73) Lymphocytes (%) (Auto) 24 % (24-48) 23 % (24-48) Monocytes (%) (Auto) 6 % (0-9) 7 % (0-9) Eosinophils (%) (Auto) 2 % (0-3) 2 % (0-3) Basophils (%) (Auto) 1 % (0-3) 1 % (0-3) Neutrophils # (Auto) 6.4 x10^3uL (1.8-7.7) 6.7 x10^3uL (1.8-7.7) Lymphocytes # (Auto) 2.3 x10^3/uL (1.0-4.8) 2.2 x10^3/uL (1.0-4.8) Monocytes # (Auto) 0.6 x10^3/uL (0.0-1.1) 0.7 x10^3/uL (0.0-1.1) Eosinophils # (Auto) 0.2 x10^3/uL (0.0-0.7) 0.2 x10^3/uL (0.0-0.7) Basophils # (Auto) 0.1 x10^3/uL (0.0-0.2) 0.1 x10^3/uL (0.0-0.2) Erythrocyte Sedimentation Rate 40 (0-15) Sodium Level 142 mmol/L (136-145) Potassium Level 4.2 mmol/L (3.5-5.1) Chloride Level 106 mmol/L (98-107) Carbon Dioxide Level 30 mmol/L (21-32) Anion Gap 6 (6-14) Blood Urea Nitrogen 10 mg/dL (8-26) Creatinine 1.1 mg/dL (0.7-1.3) Estimated GFR (Cockcroft-Gault) 74.1 Glucose Level 113 mg/dL (70-99) Calcium Level 7.8 mg/dL (8.5-10.1) Vancomycin Level Trough 8.1 mcg/mL (10.0-20.0) 15.4 mcg/mL (10.0-20.0) Vancomycin Last Dose Date 12/17/16 Vancomycin Last Dose Time 1400 0300 Laboratory Tests Test 12/17/16 04:15 12/17/16 10:32 White Blood Count 9.8 x10^3/uL (4.0-11.0) Red Blood Count 4.27 x10^6/uL (4.30-5.70) Hemoglobin 12.2 g/dL (13.0-17.5) Hematocrit 36.3 % (39.0-53.0) Mean Corpuscular Volume 85 fL (79-100) Mean Corpuscular Hemoglobin 29 pg (25-35) Mean Corpuscular Hemoglobin Concent 34 g/dL (31-37) Red Cell Distribution Width 13.0 % (11.5-14.5) Platelet Count 313 x10^3/uL (140-400) Neutrophils (%) (Auto) 68 % (31-73) Lymphocytes (%) (Auto) 23 % (24-48) Monocytes (%) (Auto) 7 % (0-9) Eosinophils (%) (Auto) 2 % (0-3) Basophils (%) (Auto) 1 % (0-3) Neutrophils # (Auto) 6.7 x10^3uL (1.8-7.7) Lymphocytes # (Auto) 2.2 x10^3/uL (1.0-4.8) Monocytes # (Auto) 0.7 x10^3/uL (0.0-1.1) Eosinophils # (Auto) 0.2 x10^3/uL (0.0-0.7) Basophils # (Auto) 0.1 x10^3/uL (0.0-0.2) Vancomycin Level Trough 15.4 mcg/mL (10.0-20.0) Vancomycin Last Dose Date 12/17/16 Vancomycin Last Dose Time 0300 Notes A and A blister formed over dorsum of finger, erythema a little better Assessment and Plan blister unroofed, skin all intact underneath, dressing applied cont abx ALIYAH JOSHUA II, MD Dec 17, 2016 13:10
[2016-12-17 15:00] VITALS: BP 117/68
[2016-12-17] MEDS: VANCOMYCIN PER PHARMACY MC PRN (15:46)
[2016-12-17 19:25] VITALS: BP 110/65
[2016-12-17] MEDS: ENOXAPARIN 40 MG/0.4 ML SYRINGE. SQ SCH (21:41)
[2016-12-17] MEDS: HYDROcodone/APAP 5/325MG 1 TAB TABLET PO PRN (21:42)
[2016-12-17 23:15] VITALS: BP 106/65
[2016-12-18] MEDS: PIPERACILLIN/TAZOBACTAM 3.375 GM in IV NORMAL SALINE 50ML 50 ML IV SCH ×3 (01:00→17:53)
[2016-12-18] MEDS: VANCOMYCIN 1 GM in IV NORMAL SALINE 250ML 250 ML IV SCH ×3 (03:08→19:00)
[2016-12-18 03:27] VITALS: BP 110/63
[2016-12-18 07:00] VITALS: BP 114/68
--- NOTE | 2016-12-18 07:55 | PDOC ---
ORTHO PROGRESS NOTES Subjective "feeling fine" he feels like his motion is better. No new complaints Vitals Vital Signs Date Time Temp Pulse Resp B/P (MAP) Pulse Ox O2 Delivery O2 Flow Rate FiO2 12/18/16 03:27 98.7 68 18 110/63 (79) 96 Room Air 98.7 Labs Laboratory Tests Test 12/17/16 04:15 12/17/16 10:32 White Blood Count 9.8 x10^3/uL (4.0-11.0) Red Blood Count 4.27 x10^6/uL (4.30-5.70) Hemoglobin 12.2 g/dL (13.0-17.5) Hematocrit 36.3 % (39.0-53.0) Mean Corpuscular Volume 85 fL (79-100) Mean Corpuscular Hemoglobin 29 pg (25-35) Mean Corpuscular Hemoglobin Concent 34 g/dL (31-37) Red Cell Distribution Width 13.0 % (11.5-14.5) Platelet Count 313 x10^3/uL (140-400) Neutrophils (%) (Auto) 68 % (31-73) Lymphocytes (%) (Auto) 23 % (24-48) Monocytes (%) (Auto) 7 % (0-9) Eosinophils (%) (Auto) 2 % (0-3) Basophils (%) (Auto) 1 % (0-3) Neutrophils # (Auto) 6.7 x10^3uL (1.8-7.7) Lymphocytes # (Auto) 2.2 x10^3/uL (1.0-4.8) Monocytes # (Auto) 0.7 x10^3/uL (0.0-1.1) Eosinophils # (Auto) 0.2 x10^3/uL (0.0-0.7) Basophils # (Auto) 0.1 x10^3/uL (0.0-0.2) Vancomycin Level Trough 15.4 mcg/mL (10.0-20.0) Vancomycin Last Dose Date 12/17/16 Vancomycin Last Dose Time 0300 Laboratory Tests Test 12/17/16 10:32 Vancomycin Level Trough 15.4 mcg/mL (10.0-20.0) Vancomycin Last Dose Date 12/17/16 Vancomycin Last Dose Time 0300 Notes A and A edema unchanged from yesterday, ROM maybe a little better some drainage, but not much Assessment and Plan cont abx discussed wound care with him ALIYAH JOSHUA II, MD Dec 18, 2016 07:55
[2016-12-18] MEDS: NAPROXEN 500 MG TABLET PO SCH ×2 (10:28→21:00)
[2016-12-18] MEDS: DOCUSATE SODIUM 100 MG CAPSULE. PO SCH (10:28)
[2016-12-18 11:00] VITALS: BP 108/69
[2016-12-18] MEDS: VANCOMYCIN PER PHARMACY MC PRN (11:21)
--- NOTE | 2016-12-18 12:34 | PDOC ---
PROGRESS NOTES Chief Complaint Chief Complaint RT index finger cellulitis - NO surgical plans, IV abx broad right thumb with foreign metallic objects embedded, likely knife shrapnels SIRS POA infectious no organ dysfcn plan: fu with ortho on zosyn and Vanco local wound care no sx dvt ppx History of Present Illness History of Present Illness ROS: no fever, chills, sob or chest pain right index finger swollen, erythematous, with some drainage, pt said it is better no protein S deficiency Vitals Vitals Vital Signs Date Time Temp Pulse Resp B/P (MAP) Pulse Ox O2 Delivery O2 Flow Rate FiO2 12/18/16 11:00 97.7 66 16 108/69 (82) 94 Room Air 97.7 Physical Exam General: Alert, Oriented X3, Cooperative, No acute distress Heart: Regular rate, Normal S1, Normal S2 Lungs: Clear Abdomen: Normal bowel sounds, Soft, No tenderness, No hepatosplenomegaly, No masses Extremities: No clubbing, Other (T forefingerm, swollen, red, open lesion with some clear to yellowish/milky dc, limited flexion bec of swelling) Assessment and Plan Assessmemt and Plan Problems Medical Problems: (1) Cellulitis of finger of right hand Status: Acute Problems: Comment Review of Relevant I have reviewed the following items avel (where applicable) has been applied. Labs Laboratory Tests Test 12/17/16 04:15 12/17/16 10:32 White Blood Count 9.8 x10^3/uL (4.0-11.0) Red Blood Count 4.27 x10^6/uL (4.30-5.70) Hemoglobin 12.2 g/dL (13.0-17.5) Hematocrit 36.3 % (39.0-53.0) Mean Corpuscular Volume 85 fL (79-100) Mean Corpuscular Hemoglobin 29 pg (25-35) Mean Corpuscular Hemoglobin Concent 34 g/dL (31-37) Red Cell Distribution Width 13.0 % (11.5-14.5) Platelet Count 313 x10^3/uL (140-400) Neutrophils (%) (Auto) 68 % (31-73) Lymphocytes (%) (Auto) 23 % (24-48) Monocytes (%) (Auto) 7 % (0-9) Eosinophils (%) (Auto) 2 % (0-3) Basophils (%) (Auto) 1 % (0-3) Neutrophils # (Auto) 6.7 x10^3uL (1.8-7.7) Lymphocytes # (Auto) 2.2 x10^3/uL (1.0-4.8) Monocytes # (Auto) 0.7 x10^3/uL (0.0-1.1) Eosinophils # (Auto) 0.2 x10^3/uL (0.0-0.7) Basophils # (Auto) 0.1 x10^3/uL (0.0-0.2) Vancomycin Level Trough 15.4 mcg/mL (10.0-20.0) Vancomycin Last Dose Date 12/17/16 Vancomycin Last Dose Time 0300 Microbiology 12/16/16 Gram Stain - Final, Complete Medications Current Medications Vancomycin HCl 250 ml @ 250 mls/hr 1X ONCE IV ; Start 12/14/16 at 13:00; Stop 12/14/16 at 13:59; Status Cancel Acetaminophen/ Hydrocodone Bitart (Lortab 10/325) 1 tab 1X ONCE PO Last administered on 12/14/16 13:38; Start 12/14/16 at 13:00; Stop 12/14/16 at 13 :01; Status DC Ondansetron HCl (Zofran) 4 mg PRN Q8HRS PRN IV NAUSEA/VOMITING; Start at 13:15; Stop 12/14/16 at 15:02; Status DC Vancomycin HCl (Vanco Per Pharmacy) 1 each PRN DAILY PRN MC SEE COMMENTS Last administered on 12/18/16 11:21; Start 12/14/16 at 13:15 Acetaminophen/ Hydrocodone Bitart (Lortab 5/325) 2 tab PRN Q6HRS PRN PO MODERATE - SEVERE PAIN Last administered on 12/17/16 21:42; Start 12/14/16 at 13:15 Vancomycin HCl 2 gm/Sodium Chloride 500 ml @ 250 mls/hr 1X ONCE IV Last administered on 12/14/16 13:38; Start 12/14/16 at 14:00; Stop 12/14/16 at 15 :59; Status DC Vancomycin HCl 1.25 gm/Sodium Chloride 250 ml @ 167 mls/hr Q12H IV Last administered on 12/15/16 15:07; Start 12/15/16 at 02:00; Stop 12/16/16 at 02 :22; Status DC Vancomycin HCl 1 each 1X ONCE MC Last administered on 12/16/16 01:30; Start 12/16/16 at 01:30; Stop 12/16/16 at 01:31; Status DC Ondansetron HCl (Zofran) 4 mg PRN Q6HRS PRN IV NAUSEA/VOMITING Last administered on 12/14/16 20:04; Start 12/14/16 at 15:15; Stop 12/15/16 at 15 :14; Status DC Acetaminophen (Tylenol) 650 mg PRN Q6HRS PRN PO MILD PAIN; Start 12/14/16 at 15:15 Morphine Sulfate 2 mg PRN Q2HR PRN IV PAIN Last administered on 12/16/16 08: 17; Start 12/14/16 at 15:15 Piperacillin Sod/ Tazobactam Sod 3.375 gm/Sodium Chloride 50 ml @ 100 mls/hr Q8H IV Last administered on 12/18/16 10:28; Start 12/14/16 at 17:00 Diphenhydramine HCl (Benadryl) 25 mg PRN Q6HRS PRN IVP ITCHING Last administered on 12/14/16 22:17; Start 12/14/16 at 22:15 Naproxen (Naprosyn) 500 mg BID PO Last administered on 12/18/16 10:28; Start 12/15/16 at 10:00 Vancomycin HCl 1 gm/Sodium Chloride 250 ml @ 250 mls/hr Q8H IV Last administered on 12/18/16 03:08; Start 12/16/16 at 03:00 Vancomycin HCl 1 each 1X ONCE MC ; Start 12/17/16 at 10:30; Stop 12/17/16 at 10:31; Status DC Influenza Virus Vaccine Quadrival (Fluarix Quad 8640-5731 Syringe) 0.5 ml ONCE ONCE VAX IM Last administered on 12/16/16 12:21; Start 12/16/16 at 12:00; Stop 12/16/16 at 12:01; Status DC Docusate Sodium (Colace) 100 mg DAILY PO Last administered on 12/18/16 10:28 ; Start 12/16/16 at 16:30 Polyethylene Glycol (miraLAX PACKET) 17 gm PRN DAILY PRN PO CONSTIPATION; Start 12/16/16 at 16:15 Enoxaparin Sodium (Lovenox 40mg Syringe) 40 mg Q24H SQ Last administered on t 21:41; Start 12/17/16 at 21:00 Vitals/I & O Vital Sign - Last 24 Hours 12/17/16 12/17/16 12/17/16 12/17/16 15:00 19:25 19:43 21:42 Temp 99.1 98.3 99.1 98.3 Pulse 61 74 Resp 18 16 18 B/P (MAP) 117/68 (84) 110/65 (80) Pulse Ox 95 96 O2 Delivery Room Air Room Air Room Air Room Air 12/17/16 12/17/16 12/18/16 12/18/16 22:45 23:15 03:27 07:00 Temp 98.5 98.7 98.3 98.5 98.7 98.3 Pulse 67 68 59 Resp 18 16 18 18 B/P (MAP) 106/65 (79) 110/63 (79) 114/68 (83) Pulse Ox 96 96 95 O2 Delivery Room Air Room Air Room Air Room Air 12/18/16 11:00 Temp 97.7 97.7 Pulse 66 Resp 16 B/P (MAP) 108/69 (82) Pulse Ox 94 O2 Delivery Room Air FRANCISCO MORA MD Dec 18, 2016 12:34
[2016-12-18] MEDS ORDERED: ONDANSETRON PF 4 MG/2 ML VIAL. IV PRN (12:45)
[2016-12-18 15:00] VITALS: BP 110/61
[2016-12-18 19:30] VITALS: BP 112/63
[2016-12-18] MEDS: ENOXAPARIN 40 MG/0.4 ML SYRINGE. SQ SCH (21:00)
[2016-12-18] MEDS: LACTOBACILLUS ACIDOPH & BULGAR 1 TABLET. PO SCH (21:00)
[2016-12-18 23:30] VITALS: BP 100/64
[2016-12-19] MEDS: PIPERACILLIN/TAZOBACTAM 3.375 GM in IV NORMAL SALINE 50ML 50 ML IV SCH ×2 (01:10→09:18)
[2016-12-19 03:25] VITALS: BP 102/66
[2016-12-19] MEDS: VANCOMYCIN 1 GM in IV NORMAL SALINE 250ML 250 ML IV SCH (03:28)
[2016-12-19 04:21] LABS: BASO # 0.1 x10^3/uL (0.0-0.2); BASO % 1 % (0-3); EOS % 4 % (0-3); HEMATOCRIT 38.5 % (39.0-53.0); HEMOGLOBIN 12.5 g/dL (13.0-17.5); LYMPH # 2.4 x10^3/uL (1.0-4.8); LYMPH % 41 % (24-48); MEAN CORPUSCULAR HEMOGLOBIN 28 pg (25-35); MEAN CORPUSCULAR HGB CONC 33 g/dL (31-37); MEAN CORPUSCULAR VOLUME 86 fL (79-100); MONO % 7 % (0-9); NEUT % 47 % (31-73); PLATELET COUNT 359 x10^3/uL (140-400); RED BLOOD COUNT 4.48 x10^6/uL (4.30-5.70); RED CELL DISTRIBUTION WIDTH 13.2 % (11.5-14.5); WHITE BLOOD COUNT 5.9 x10^3/uL (4.0-11.0)
[2016-12-19 04:36] LABS: CALCIUM 8.4 mg/dL (8.5-10.1); CREATININE 1.1 mg/dL (0.7-1.3); GFR 74.1; POTASSIUM 4.3 mmol/L (3.5-5.1)
[2016-12-19 07:00] VITALS: BP 112/64
[2016-12-19] MEDS: DOCUSATE SODIUM 100 MG CAPSULE. PO SCH (09:17)
[2016-12-19] MEDS: LACTOBACILLUS ACIDOPH & BULGAR 1 TABLET. PO SCH (09:18)
[2016-12-19] MEDS: NAPROXEN 500 MG TABLET PO SCH (09:18)
[2016-12-19 10:54] VITALS: BP 112/67
[2016-12-19] MEDS ORDERED: LEVO750T31 PO (13:10)
[2016-12-19] MEDS ORDERED: HYDR-2758 PO (13:10)
--- NOTE | 2016-12-19 13:15 | PDOC3 ---
Discharge Summary IPC Date of Admission: Dec 14, 2016 Discharge Date: Dec 19, 2016 Admitting Diagnosis RT index finger cellulitis - NO surgical plans, IV abx broad, MRSA + IN the wound cx right thumb with foreign metallic objects embedded, likely knife shrapnels, no symptom SIRS POA infectious no organ dysfcn Problems: Final Diagnosis CONSULTS dr. Giles Brief Hospital Course Mr. Connors is a 41 old M, come for right index finger pain, swelling and some pus coming out of blisters. wound cx + MRSA. XR showed Metallic foreign bodies of the right thumb which has no symptom. no sx done. the finger is getting better, still mild discharge tho, treated with zosyn and vanco in hosp. dc home with levaquin if ok with ortho dc time 35min General: Alert, Oriented X3, Cooperative, No acute distress Heart: Regular rate, Normal S1, Normal S2 Lungs: Clear Abdomen: Normal bowel sounds, Soft, No tenderness, No hepatosplenomegaly, No masses Extremities: No clubbing, Other (T forefingerm, swollen, red, open lesion with some clear to yellowish/milky dc, limited flexion bec of swelling) Problems: Disposition home CONDITION AT DISCHARGE: Improved Diet regular Scheduled Levofloxacin (Levaquin), 750 MG PO DAILY06 Scheduled PRN Hydrocodone Bit/Acetaminophen (Hydrocodone-Apap 5-325 ), 2 TAB PO PRN Q6HRS PRN for MODERATE - SEVERE PAIN Follow Up ortho next week FRANCISCO MORA MD Dec 19, 2016 13:15
== END 2016-12-19 14:25 | disposition home or self-care (01) | DRG 603 ==
LOC: ER 11:24 → 4 NORTH 12:52
PROVIDERS: ADMIT Internal Medicine; ATTEND Internal Medicine
DX: L03.011 Cellulitis of right finger (principal); R65.10 Systemic inflammatory response syndrome (SIRS) of non-infectious origin without acute organ dysfunction; B95.62 Methicillin resistant Staphylococcus aureus infection as the cause of diseases classified elsewhere; S60.420A Blister (nonthermal) of right index finger, initial encounter; S61.240A Puncture wound with foreign body of right index finger without damage to nail, initial encounter; W57.XXXA Bitten or stung by nonvenomous insect and other nonvenomous arthropods, initial encounter; Y93.89 Activity, other specified; Y92.89 Other specified places as the place of occurrence of the external cause; Y99.8 Other external cause status; Z79.82 Long term (current) use of aspirin
CPT/HCPCS: 36415; 73140; 80048; 80053; 80202; 85025; 85651; 87071; 87075; 87205; 90686; 96365; J1200; J1650; J2270; J2405; J2543; J3370; J7040; J7050; 99285-25; J7030